=== PATIENT | female | born 1940 | race Caucasian/White ===

== ENCOUNTER → 2016-04-11 | Outpatient (CLI) | payer OTHER, BC ==
[~2016-04-11] VITALS: Ht 165.1 cm; Wt 47.2 kg
[~2016-04-11] MED LIST: ALEVE220 MG PO; AMBEREN PO; CELEBREX 200 M200 MG PO; ENDOCET 5-3251 EACH PO; FLAX OIL1000 MG PO; FLOVENT HFA 1110 MCG IH; OXYCODONE-ACET1 EACH PO; OXYCODONE-APAP1 EAC6 PO; OXYCONTIN10 M1 PO; PERCOCET 5-3251 EACH PO; RELAFEN500 MG PO; VITAMIN D1000 UNI1 PO; XOPENEX HF1 UDINHALE IH
--- NOTE | ~2016-04-11 | HPC ---
[facility] [address] [address] PAIN MANAGEMENT CONSULTATION Name: JORDEN GREGORIO Room #: REG SOFÍA Leonie.#: [id number] Admission: 04/11/16 Attend Phys: Ravi Palafox MD Discharge: Date of : 41 Report #: [id number] THIS REPORT FOR: //name// CC: Phill Palafox DATE OF REGISTRATION: 04/10/2016. 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 The patient is here today for a 3-month followup visit. She is here for medication management. SUBJECTIVE: She was last seen on 12/28/2015. She has been a longstanding patient of our clinic. We released her medications last week when she had to attend a . She is here today for her followup visit. She reports her pain remains well controlled with medication. It is not ideal, but she is grateful for it. We reviewed her medications today, side effects, which have been limited. She complains that during the cold winter months, her pain is worse. This is fairly typical for a number of our patients who have similar problems with chronic spondylitic changes of the spine. PHYSICAL EXAMINATION: GENERAL: She is a pleasant 75-year-old. VITAL SIGNS: Blood pressure 140/77, heart rate 80, BMI is 17. MUSCULOSKELETAL: Tenderness across the low back is noted. She has noted dextro-rotational scoliosis. IMPRESSION: 1. Chronic low back pain with radiculopathy, which is now on check. 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 2. Management of high risk medications. RECOMMENDATIONS: Today, I reviewed important issues related to the use of opioids and other potent, centrally-acting medications for the treatment of pain. Rationale for the use of medication is to reduce pain and improve daily activities and function. These activities, individualized for each patient, include simple activities of daily living, improvement in work capabilities, increased involvement in family and other social activities. Improvement in psychosocial elements of chronic pain were discussed in a broader conversation of wellness that included nonpharmacologic measures to manage pain, suffering and efforts to enhance well being. Remaining as physically active as possible for age and ability plays a tremendous role in the management of chronic pain. This was encouraged. We reviewed potential medication side effects, toxicities and drug interactions, employing strategies to manage problems identified. Pain medications have potential side effects, and patients should exercise caution when operating machinery or driving. We discussed in detail the dramatic increase in the Emergency Room visits, hospitalizations and deaths related to [facility] [address] [place] [address] PAIN MANAGEMENT CONSULTATION Name: JORDEN GREGORIO [facility] [place]#: [id number] Admission: 04/11/16 Attend Phys: Ravi Palafox MD Discharge: Date of : 41 Report #: [id number] misuse and diversion of prescription pain medications in [place]. This opioid crisis in [place] requires both physicians and patients alike to safely use all medications. Safeguarding of medications by keeping them safely locked up or out of reach of others is a critical patient responsibility to ensure that medications are not diverted to others. We discussed the Center for Disease Control (CDC) guidelines for safe use of opioids and the efforts to standardize opioid prescribing to prevent complications. These include guidelines which we strive to meet. They include the standardization of various opioids to morphine milligram equivalents (MME) and also stress the use of the lowest effective dose. Efforts to remain within daily maximum dosing guidelines will also be of focus of treatment. Addiction versus therapeutic use of medication includes routine followup, single prescriber, single pharmacy and the use of random drug screens and other tools to ensure safe prescribing. A signed agreement outlying these issues has been reviewed and remains on the patient chart. Prescriptions were provided today under terms of that agreement, and followup visit is planned in 3 months. <ELECTRONICALLY SIGNED> By: Ravi Palafox MD 05/05/16 1130 1500 00 Ravi Palafox MD /nt
[2016-04-11 14:05] VITALS: BP 140/77
== END | disposition home or self-care (01) ==
LOC: PAIN 04-05 08:01
DX: M54.16 Radiculopathy, lumbar region (principal); M41.9 Scoliosis, unspecified

== ENCOUNTER → 2016-06-18 | Outpatient (CLI) | payer OTHER, BC ==
[~2016-06-18] VITALS: Ht 165.1 cm; Wt 47.9 kg
[~2016-06-18] MED LIST changes: +GABAPENTIN100 MG PO
--- NOTE | ~2016-06-18 | HPC ---
[facility] [address] [address] [address] PAIN MANAGEMENT CONSULTATION Name: JORDEN GREGORIO Room #: REG SOFÍA Leonie.#: [id number] Admission: 06/18/16 Attend Phys: Ravi Palafox MD Discharge: Date of : 41 Report #: [id number] THIS REPORT FOR: //name// CC: Phill Palafox DATE OF SERVICE: 06/18/2016 DATE OF SERVICE: 06/18/2016 Followup visit for chronic back pain with radiculopathy, L5-S1. The patient returns to pain clinic today and her pain is quite a bit worse. Over the course of many years, she had epidural injections, but has not had one for over 15 months. She says the pain is so severe that she cannot really do many of the things that she enjoys including activities around the house, taking care of grandchildren. She had to a leave alliance party the other night because she could not stand for more than just a bit. Pain is in the back, but more so it radiates down through the legs bilaterally following an L5-S1 distribution. She has had scoliosis and degenerative disease affecting the lower lumbar segment. There is a transition of the lumbar anatomy with lumbarization of S1. She has marked facet arthrosis at L5-S1 and disk desiccation there. scoliosis is a left convexity. Medications have been used to help with pain, and I have agreed to provide this for her under terms of our opioid agreement. This was last signed in 2015, first signed in 2002. She has used medications cautiously and carefully under terms of our agreement and is at modest dose averaging oxycodone 7.5 tablets 4 times daily for a total of 30 mg of oxycodone a day equal to morphine milligrams equivalence to 45. PHYSICAL EXAMINATION: GENERAL: She is pleasant, alert and oriented. She is very slender and has always been. VITAL SIGNS: Her BMI is 17.6. This is her normal height and weight. Her blood pressure is 121/74, heart rate 86. MUSCULOSKELETAL: She has tenderness around her scoliotic lumbar spine and she has pain with walking. She has bilateral positive straight leg raising, reproduces pain down the L5-S1 distribution. Sensation is intact. No focal weakness is noted. IMPRESSION: 1. Low back pain with radiculopathy secondary to significant degenerative disease of the lumbar spine with rotational scoliosis, spondylosis and facet arthrosis. [address] [address] PAIN MANAGEMENT CONSULTATION Name: JORDEN GREGORIO [facility]: [id number] Admission: 06/18/16 Attend Phys: Ravi Palafox MD Discharge: Date of : 41 Report #: [id number] 2. Management of high risk medications under terms of an opioid agreement. PLAN: I have renewed her medications under agreement and she was then taken to the fluoroscopic suite for an epidural injection. She was placed prone, skin was prepped with ChloraPrep. Skin was anesthetized over the L5-S1 interspace. A 20-gauge Tuohy epidural needle advanced in the epidural space using loss of resistance. No blood or CSF aspirated. 1 mL of Omnipaque injected with good spread of dye observed in the epidural space, spreading nicely to the right. This was then followed by 3 mL of 1% lidocaine mixed with 80 mg of triamcinolone. She tolerated the procedure well and was taken to recovery room for observation. Followup visit planned in 3 months. We did started new medication today, gabapentin 100 mg taken at bedtime, may be also taken 3 times a day for neuropathic pain. She start this if she does not get satisfactory relief from her epidural injection. By: 1527 [id number] Ravi Palafox MD /nt
[2016-06-18 14:18] VITALS: BP 121/74
== END ==
LOC: PAIN 07:15
DX: M47.816 Spondylosis without myelopathy or radiculopathy, lumbar region (principal); M54.17 Radiculopathy, lumbosacral region; F17.210 Nicotine dependence, cigarettes, uncomplicated

== ENCOUNTER → 2016-09-20 | Outpatient (CLI) | payer OTHER, BC ==
[~2016-09-20] VITALS: Ht 165.1 cm; Wt 45.8 kg
[~2016-09-20] MED LIST changes: +VOLTAREN GEL 1100 G2 TOP
[2016-09-20 11:16] VITALS: BP 157/80
== END | disposition home or self-care (01) ==
LOC: PAIN 06:41
DX: M54.16 Radiculopathy, lumbar region (principal); G89.29 Other chronic pain; M25.571 Pain in right ankle and joints of right foot; C44.319 Basal cell carcinoma of skin of other parts of face; M76.61 Achilles tendinitis, right leg; F17.210 Nicotine dependence, cigarettes, uncomplicated; F11.20 Opioid dependence, uncomplicated; Z98.890 Other specified postprocedural states

== ENCOUNTER → 2016-12-17 | Outpatient (CLI) | payer OTHER, BC ==
[~2016-12-17] VITALS: Ht 165.1 cm; Wt 45.5 kg
--- NOTE | ~2016-12-17 | HPC ---
[facility] [place] [address] PAIN MANAGEMENT CONSULTATION Name: JORDEN GREGORIO Room #: REG SOFÍA Leonie.#: [id number] Admission: 12/17/16 Attend Phys: Ravi Palafox MD Discharge: Date of : 41 Report #: [id number] THIS REPORT FOR: //name// CC: Phill Palafox DATE OF SERVICE: 12/17/2016 Followup visit for lumbar radiculopathy. The patient returns to pain clinic today for renewal of pain medication. She uses oxycodone 7.5/325 four times daily on a schedule. She has done pretty well with the medication. She previously was receiving some benefit from an epidural injection, but I gave her an injection last year, which hurt during the performance of the shot, she does not want an injection since. She scores her daily pain is a 5/10. It is worse with standing, bending. It is worse in the evening and with weather changes. She gets relief from her medication, relaxation, heat. CURRENT MEDICATIONS: Gabapentin 100 mg once daily, oxycodone 7.5 four times daily, diclofenac gel topical and cholecalciferol. Recent history is significant for Mohs procedure. She is healing nicely from that, although she thinks that the scars are quite evident I did not even notice them and tell or point it out. She has a lot of sun exposure and multiple basal cells that will need to be treated over the years. She also has a new plantar fasciitis in the right foot, which is locally tender and quite painful and severe. PHYSICAL EXAMINATION: She is pleasant with no significant changes in her affect. No depression or anxiety. Blood pressure 146/68, heart rate is 76, BMI is 16.7. She has low back tenderness and discomfort with flexion, extension and rotation. She has straight leg raising discomfort that is bilateral into the hips all the way to the feet. Her gait is strong, she is not a fall risk. She has tenderness over the right heel consistent with plantar fasciitis. IMPRESSION: 1. Chronic back pain with radiculopathy. 2. Plantar fasciitis. 3. Management of high risk medications under terms of an opioid agreement. PLAN: I renewed her medications under terms of our agreement with the importance of safeguarding all medications discussed. She will continue to safeguard her medications. We will continue to provide medicines for [place] [address] PAIN MANAGEMENT CONSULTATION Name: JORDEN GREGORIO Room #: REG SOFÍA Gibson#: [id number] Admission: 12/17/16 Attend Phys: Ravi Palafox MD Discharge: Date of : 41 Report #: [id number] Followup visit is planned in the pain clinic in 3 months. By: [id number] Ravi Palafox MD /nt
[2016-12-17 13:18] VITALS: BP 146/68
== END | disposition home or self-care (01) ==
LOC: PAIN 07:39
DX: Z76.0 Encounter for issue of repeat prescription (principal); G89.29 Other chronic pain; M54.16 Radiculopathy, lumbar region; M72.2 Plantar fascial fibromatosis; F17.200 Nicotine dependence, unspecified, uncomplicated; Z98.890 Other specified postprocedural states; Z79.891 Long term (current) use of opiate analgesic

== ENCOUNTER → 2017-01-02 | Outpatient (CLI) | payer OTHER, BC ==
[~2017-01-02] VITALS: Ht 165.1 cm; Wt 48.1 kg
--- NOTE | ~2017-01-02 | HPC ---
[facility] [address] [address] PAIN MANAGEMENT CONSULTATION Name: JORDEN GREGORIO Room #: REG SOFÍA [place].#: [id number] Admission: 01/02/17 Attend Phys: Ravi Palafox MD Discharge: Date of : 41 Report #: [id number] THIS REPORT FOR: //name// CC: Phill Palafox DATE OF SERVICE: 01/02/2017 CHIEF COMPLAINT: Low back pain with radiation to the right hip, following an L5 distribution into the calf and foot. The patient is here today with severe sciatic pain. The pain is 10/10. It occurred after she did some exercises, some lifting and bending. The pain now is to the point where she can hardly stand or bend. It is worse in the evening and weather has also made it worse. She has tried medication, relaxation, heat and rest, but the pain is so severe that she would like to go forward today with an epidural. I provided these treatments for her in the past with good response. MEDICATIONS: Reviewed and reconciled. She is on oxycodone, naproxen, cholecalciferol and Xopenex. ALLERGIES: SHRIMP. I have given her small amounts of Omnipaque in the past without reaction. PHYSICAL EXAMINATION: She is very slender with a BMI of 17.6. Blood pressure of 176/84, heart rate 80, respirations 18. She moves from a sitting to standing position, ambulates with pain. She has trouble with forward bending and extension of the spine. Localized tenderness is noted of the lumbosacral segment, where she has a rotational scoliosis and tenderness. Straight leg raising in sitting position is positive on the right, following an L5 distribution as far as the foot. Sensation is slightly diminished. Deep tendon reflexes are diminished at the knee and ankle. IMPRESSION: Severe lumbar spondylosis with rotational scoliosis. Lumbar radiculopathy, right L5 distribution. RECOMMENDATIONS: L5-S1 epidural steroid injection under fluoroscopic guidance. PROCEDURE: She was taken to fluoroscopic suite, placed prone, skin prepped with ChloraPrep. Skin anesthetized over the L5-S1 to the right of midline. A 20-gauge Tuohy epidural needle at first attempt in the epidural space using loss of resistance. A 0.25 mL of Omnipaque was injected to demonstrate right lateral spread into the recess. It was then followed by 3 mL of 0.5% lidocaine mixed with 80 mg of triamcinolone as tolerated. She tolerated the procedure well and was observed for 45 minutes and discharged. [address] [address] PAIN MANAGEMENT CONSULTATION Name: JORDEN RGEGORIO Room #: REG [facility]#: [id number] Admission: 01/02/17 Attend Phys: Ravi Palafox MD Discharge: Date of : 41 Report #: [id number] Followup visit is planned in the pain clinic on an as needed basis. The patient will be followed closely for medication management of intractable pain and she has an appointment that is coming in, in about another 2 months. By: [id number] Ravi Palafox MD /nt
[2017-01-02 14:01] VITALS: BP 176/84
== END | disposition home or self-care (01) ==
LOC: PAIN 08:43
DX: M47.896 Other spondylosis, lumbar region (principal); M41.86 Other forms of scoliosis, lumbar region; G89.29 Other chronic pain; F17.200 Nicotine dependence, unspecified, uncomplicated; Z79.891 Long term (current) use of opiate analgesic

== ENCOUNTER → 2017-03-13 | Outpatient (CLI) | payer OTHER, BC ==
[~2017-03-13] VITALS: Ht 165.1 cm; Wt 44.6 kg
[~2017-03-13] MED LIST changes: +OXYCODON-ACETA1 EAC1 PO
--- NOTE | ~2017-03-13 | HPC ---
[facility] [place] [address] [address] [place] [address] PAIN MANAGEMENT CONSULTATION Name: JORDEN GREGORIO Room #: REG [facility] M..#: [id number] Admission: 03/13/17 Attend Phys: Lorna Burns MD Discharge: Date of : 41 Report #: [id number] THIS REPORT FOR: //name// CC: Lorna Calvillo MD DATE OF SERVICE: 03/13/2017 FOLLOWUP COMPLAINT: Here for medication evaluation. FOLLOWUP HISTORY: The patient is a 76-year-old female who has been followed in the pain clinic by Dr. Ravi Palafox. She has pain and discomfort, which radiates down into her back, hip and involving her right leg. She rates her pain as 4/10 at this juncture. She continues to note that pain is problematic and can be worse in the evenings as well as when the weather changes. She has soreness and a burning pressure sensation in this area. She has been treated with oxycodone, which she finds efficacious. ALLERGIES: SHRIMP AND AVOCADOS. MEDICATIONS: Oxycodone 7.5 mg 1 p.o. q. 6 hours p.r.n. as needed, Voltaren gel 1% applied four times topically, Naprosyn 220 mg tablets one orally as needed, vitamin D. PHYSICAL EXAMINATION: Blood pressure is 133/78, pulse 78, respiratory rate 14, room air saturation 97%. Height 5 feet 5 inches, weight 98 pounds, BMI is 16. The patient complains of pain and discomfort, which can be most problematic when standing, bending, twisting and with certain activities. She is a very thin lady. Notes some increased lumbosacral discomfort with rotation and with movement of her lower extremities. Straight leg raise is positive. IMPRESSION: Lumbar radiculopathy with spondylosis and rotational scoliosis, involves the L5-S1 dermatomal distribution. RECOMMENDATIONS: At this juncture, we will continue with her opioid medications. We discussed the use of opioid medications and their efficacy. We explained that opioid medications can be efficacious, but sometimes can cause problems with tolerance as well as addiction. The patient states that she has been taking her medication for quite a number of years. This is helpful and she feels that they are truly beneficial. She has taken her medications as prescribed per her report. She will [place] [address] PAIN MANAGEMENT CONSULTATION Name: JORDEN GREGORIO Room #: REG SOFÍA Gibson#: [id number] Admission: 03/13/17 Attend Phys: Lorna Burns MD Discharge: Date of : 41 Report #: [id number] Javy. We would like to thank you for letting us participate in her care. We hope she continues to improve. By: 0926 [id number] Lorna Burns MD /PMT
[2017-03-13 09:06] VITALS: BP 133/78
== END ==
LOC: PAIN 06:51
DX: M47.26 Other spondylosis with radiculopathy, lumbar region (principal); M41.86 Other forms of scoliosis, lumbar region

== ENCOUNTER → 2017-05-30 | Outpatient (CLI) | payer OTHER, BC ==
[~2017-05-30] VITALS: Ht 165.1 cm; Wt 44.9 kg
[~2017-05-30] MED LIST changes: +CEFUROXIME250 MG PO
--- NOTE | ~2017-05-30 | HPC ---
[facility] [place] [address] [address] [place] [address] PAIN MANAGEMENT CONSULTATION Name: JORDEN GREGORIO Room #: REG SOFÍA M.R.#: [id number] Admission: 05/30/17 Attend Phys: Ravi Palafox MD Discharge: Date of : 41 Report #: [id number] THIS REPORT FOR: //name// CC: Phill Palafox DATE OF SERVICE: 05/30/2017 Followup visit for management of chronic low back pain. The patient is here today for a 3-month followup interval. She was last seen by my partner on 03/13/2017. Her interval history has been good. She shows ongoing pain at about 4, which is very manageable for her. She remains active in her house in her daily activities. She has been able to manage her pain with medication provided through the clinic and she remains on oxycodone, although we have carefully tried to limit this to the lowest effective dose over the years. She is currently now on oxycodone 7.5/325 for a total of 30 mg per day, taken on schedule. This equates to a morphine milligram equivalent of 45. She has an opioid agreement and understands well the requirements of her within the agreement to safeguard her medications. All medications were reviewed and reconciled. PQRS review is positive for history of osteoarthritis involving the lower extremities, hips and knees. She has not had operation. She has always been very slender with a BMI of 16.5. as she is aging, I have discussed with her the importance of monitoring for osteoporosis since she is at risk for fracture. She has not fallen nor is she a fall risk at this time. PHYSICAL EXAMINATION: VITAL SIGNS: Blood pressure is 127/81, heart rate 84, respirations 16, oxygen saturation 98%. She is not on a blood thinner nor is she under treatment for hypertension. Her initial opioid agreement was signed over 10 years ago. She has reports-signed an agreement here within the last couple of years in order to review the important aspects of the agreement, that was dated 12/28/2015. We talked today about the CDC guidelines, the opioid crisis in [place] and the use of medication for pain versus addiction. IMPRESSION: 1. Chronic intractable back pain with radiculopathy. 2. Lumbar spondylosis and rotational scoliosis. 3. Management of opioid medication under terms of written opioid agreement. [address] [address] PAIN MANAGEMENT CONSULTATION Name: JORDEN GREGORIO Room #: REG SOFÍA Paige#: [id number] Admission: 05/30/17 Attend Phys: Ravi Palafox MD Discharge: Date of : 41 Report #: [id number] Followup visit planned in the pain clinic in 3 months. <ELECTRONICALLY SIGNED> By: Ravi Palafox MD 07/01/17 1408 1441 22 Ravi Palafox MD /nt
[2017-05-30 12:44] VITALS: BP 127/81
== END ==
LOC: PAIN 06:51
DX: M47.26 Other spondylosis with radiculopathy, lumbar region (principal); G89.4 Chronic pain syndrome; F11.20 Opioid dependence, uncomplicated

== ENCOUNTER → 2017-08-22 | Outpatient (CLI) | payer OTHER, BC ==
[~2017-08-22] VITALS: Ht 160 cm; Wt 46.7 kg
--- NOTE | ~2017-08-22 | HPC ---
[facility] [address] [place] [address] PAIN MANAGEMENT CONSULTATION Name: JORDEN GREGORIO Room #: REG SOFÍA M..#: [id number] Admission: 08/22/17 Attend Phys: Ravi Palafox MD Discharge: Date of : 41 Report #: [id number] THIS REPORT FOR: //name// CC: Phill Palafox DATE OF SERVICE: 08/22/2017 Followup visit for chronic low back pain. The patient returns to pain clinic today and is in quite a bit of pain and is also under a great deal of stress. Her daughter and son-in-law were involved in a motor vehicle accident while on a trip in [facility]. She was caring for the 3 grandchildren at the time and has now had to take more of that responsibility. This has increased her pain and has taken away much of her free time. She complains that her pain is particularly severe with standing and weightbearing. She is grateful for the relief that she receives from medication. PQRS review shows history of osteoarthritis of the low back, left and right hip, and knee. Her body habitus has always been below 20 BMI and remains at 18.3. She is not a fall risk. She is on an opioid agreement, which was signed in 2015. We reviewed the agreement as well as the CDC guidelines. We talked about her morphine milligram equivalency. She is on 4 hydrocodone 10/325 tablets per day and we discussed increasing this with her recent increase in pain to 5 tablets. PHYSICAL EXAMINATION: Continues to show that her pain is mostly across her low back. She has pain with forward flexion and extension. She has radiating pain bilaterally into lower extremities that is consistent with radiculopathy. IMPRESSION: 1. Low back pain with spondylosis and radiculopathy. 2. Management of high risk medications under terms of written opioid agreement. I reviewed her contractual relationship with our medications. She is grateful for the analgesia and improvement in day-to-day activities that she receives from the medication. Side effects are well managed. She safeguards her medications carefully. I will see her back in the pain clinic in 3 months. By: [id number] Ravi Palafox MD /nt
[2017-08-22 10:42] VITALS: BP 144/69
== END ==
LOC: PAIN 07:02
DX: M47.27 Other spondylosis with radiculopathy, lumbosacral region (principal); F11.90 Opioid use, unspecified, uncomplicated

== ENCOUNTER → 2017-11-07 | Outpatient (CLI) | payer OTHER, BC ==
[~2017-11-07] VITALS: Ht 160 cm; Wt 46.4 kg
--- NOTE | ~2017-11-07 | HPC ---
[facility] [address] [address] PAIN MANAGEMENT CONSULTATION Name: JORDEN GREGORIO Room #: REG SOFÍA Paige#: [id number] Admission: 11/07/17 Attend Phys: Ravi Palafox MD Discharge: Date of : 42 Report #: [id number] THIS REPORT FOR: //name// CC: Phill Palafox DATE OF SERVICE: 11/07/2017 A 25-minute followup visit for chronic low back pain with radiculopathy. The patient returns to the pain clinic today and spent a great deal of time going over her ongoing pain. She had been taking care of her daughter who was involved in an accident while on vacation and her who has recently been diagnosed with DVT. She is a chronic pain patient with a backache and radiation into the left leg in a radicular distribution. She has responded well in the past to epidural injections. She has been reluctant to have an epidural recently, but is considering it now because the pain has become more severe with her recent increase in activities. I provided her medications under terms of written opioid agreement. She is on oxycodone 7.5/325 one tablet every 4 to 6 hours, I give her 150 tablets per month. We reviewed again the possibility of transitioning this to a long-acting opioid. There are some cost barriers although she can afford the higher cost medication. She is reasonably satisfied with this medication. It improves her day-to-day function and she knows that it is critical that she safeguards these multiple pills provided through our agreement. Her MME calculates to 67.5. I would like to reduce that in the future if we can with the benefit of an epidural steroid injection. PHYSICAL EXAMINATION: GENERAL: She is pleasant, alert and loquacious. She stands throughout her visit as it difficult for her to sit. HEENT: Pupils are equal, round and react to light. EOMs are intact. Mucous membranes are moist. NECK: Supple. CHEST: Clear. CARDIAC: Rhythm is regular. BACK: Spine is mildly tender with some slight scoliosis. She has pain with all range of motion of the spine, forward flexion, extension and rotation. Straight leg raising reproduces pain primarily into the left today in a radicular pattern that follows L5-S1. PQRS also shows that she is every day smoker, continues 1/2 pack per day. She no longer drinks alcohol. She is on an opioid agreement. She is on no blood thinning medications and has no history of hypertension. She is not a fall [facility] [address] [place] [address] PAIN MANAGEMENT CONSULTATION Name: JORDEN GREGORIO Room #: REG [facility]#: [id number] Admission: 11/07/17 Attend Phys: Ravi Palafox MD Discharge: Date of : 41 Report #: [id number] risk. Her BMI is 18.1, but this is normal for her. Blood pressure was 162/67, heart rate 83 and respirations 16. IMPRESSION: 1. Chronic low back pain with radiculopathy and spondylosis. 2. Management of high risk medications under terms of an opioid agreement. RECOMMENDATION: I have ordered oxycodone 7.5/325 150 tablets per month with release dates in 4 and 8 weeks. I would like to see her back in the pain clinic for an epidural injection if the pain worsens and again one of our goals would be to try and reduce her reliance on her higher dose opioid medications. By: [id number] Ravi Palafox MD /nt
[2017-11-07 12:30] VITALS: BP 162/67
== END ==
LOC: PAIN 09:27
DX: M47.26 Other spondylosis with radiculopathy, lumbar region (principal); G89.29 Other chronic pain; Z79.899 Other long term (current) drug therapy

== ENCOUNTER → 2018-02-06 | Outpatient (CLI) | payer OTHER, BC ==
[~2018-02-06] VITALS: Ht 160 cm; Wt 48.6 kg
--- NOTE | ~2018-02-06 | HPC ---
[facility] [address] [address] PAIN MANAGEMENT CONSULTATION Name: JORDEN GREGORIO Room #: REG SOFÍA Leonie.#: [id number] Admission: 02/06/18 Attend Phys: Ravi Palafox MD Discharge: Date of : 41 Report #: [id number] THIS REPORT FOR: //name// CC: Phill Palafox DATE OF SERVICE: 02/06/2018 The patient returns to the pain clinic today complaining of both low back pain and bilateral lumbar radiculopathy. Pain begins in her low back and radiates down the posterior aspect of her leg in an L5-S1 distribution. She has notable degeneration of the L5-S1 segment and has had epidural injections with good results in the past. A couple of her injections have been painful and has been a little while since she has had an injection. She remains very active. She helped take care of her daughter when her daughter had an injury and she goes to [place] and enjoys time with friends there. She likes to garden during the summer. She does lots of volunteer activities for her neighborhood. She walks her dog on a daily basis. She is far from idle and the medication that she has provides her with enough improvement in her pain that she is able to be active. I have stressed the importance of remaining active as the most important thing that she does. She denies any side effects from her medications. She has a 13-year-old grandson and I have talked to her at length about the importance of safeguarding her medications and keeping them locked up and away from him. We have checked all of her medication use on the prescription drug monitoring program and there are no suspect events. She denies side effects. Because there are some arthritic components, we discussed today the possibility of adding a nonsteroidal anti-inflammatory drug other than an occasional Aleve, which seems to provide relief. Meloxicam 7.5 mg 1-2 tablets will be offered as well. PHYSICAL EXAMINATION: She is generally in the standing position, it is her most comfortable. She has a BMI of around 20. She moves from sitting to standing position independently. She has no weakness in her legs. She has tenderness across her lumbosacral segment where there is a curvature noted in the lower lumbar region. She has pain with forward flexion, extension and positive straight leg raising bilaterally, worse on the left. Sensation is intact. IMPRESSION: Chronic low back pain with radiculopathy. PROCEDURE: Lumbar epidural steroid injection L4-L5 under fluoroscopic guidance. She was taken to the fluoroscopic suite, placed prone, [place] [address] PAIN MANAGEMENT CONSULTATION Name: JORDEN GREGORIO Room #: REG [facility] MaddyAngelo#: [id number] Admission: 02/06/18 Attend Phys: Ravi Palafox MD Discharge: Date of : 41 Report #: [id number] ChloraPrep. Skin anesthetized over L4-L5. A 20-gauge Tuohy epidural needle was advanced in the epidural space using loss of resistance technique. There was no blood or CSF aspirated. 1 mL of Omnipaque injected. Good spread of dye observed into the epidural space followed by 3 mL of 0.5% lidocaine mixed with 80 mg of triamcinolone. She tolerated the procedure well and was observed for 45 minutes and discharged. Followup visit planned as needed. By: [id number] Ravi Palafox MD /nt
[2018-02-06 13:26] VITALS: BP 145/67
== END | disposition home or self-care (01) ==
LOC: PAIN 06:44
DX: M54.16 Radiculopathy, lumbar region (principal); G89.29 Other chronic pain; F17.210 Nicotine dependence, cigarettes, uncomplicated; Z79.899 Other long term (current) drug therapy; Z79.891 Long term (current) use of opiate analgesic

== ENCOUNTER → 2018-05-05 | Outpatient (CLI) | payer OTHER, BC ==
[~2018-05-05] VITALS: Ht 160 cm; Wt 50.3 kg
[~2018-05-05] MED LIST changes: +OXYCODONE-APAP1 EAC4 PO
--- NOTE | ~2018-05-05 | HPC ---
[facility] [place] [address] [place] [address] PAIN MANAGEMENT CONSULTATION Name: JORDEN GREGORIO Room #: REG SOFÍA Leonie.#: [id number] Admission: 05/05/18 Attend Phys: Ravi Palafox MD Discharge: Date of : 41 Report #: [id number] THIS REPORT FOR: //name// CC: Phill Palafox DATE OF SERVICE: 05/05/2018 Followup visit for lumbar radiculopathy. The patient returns to the pain clinic today for an epidural injection. She had a good month of relief after her last injection at L4-L5. She does have some steroid effects and for the first week or so she has hyperactivity and some insomnia. She has been on an opioid agreement. She would like to take 5 tablets a day rather than 4. She is on Percocet 7.5. I reduced her to oxycodone 5/325, 5 tablets, which she can take throughout the day one every 4 hours. This actually will reduce her daily opioid use. Her current MME is 45 with the new medication her MME will be at 37. I would prefer not to use a long-acting opioid for her since her pain varies. She is highly active. She is upset about the fact that she will have to take care of her grandchildren when her daughter goes to the [facility]. This is a very fortunate family that has many advantages. The stress; however, is no different from others. She feels a lot of challenges when she is required to take on some of these physically challenging chores. Her PQRS review today shows that she has a history of osteoarthritis involving bilateral hips and knees. She is not a fall risk and has not fallen in the last 3 months. She is on no blood thinners and is not treated for hypertension. She is on an opioid agreement with a functional assessment score of 12/70, which is excellent. Her risk assessment tool puts her at a low risk with a score of 1. She denies use of tobacco and alcohol. PHYSICAL EXAMINATION: Her weight is slightly up to a BMI of 19.6. Her blood pressure 171/87, heart rate is 81 and respirations 14. She moves independently from sitting to standing position. She has good strength bilaterally in the lower extremities. She denies any numbness. She has a scoliotic rotational curve noted in the lumbar spine. There is tenderness across the lumbosacral segment and pain with forward flexion and extension. The longer she stands the more she complains of pain radiating into her legs with a radicular component as far as the calves. IMPRESSION: Chronic low back pain with radiculopathy, bilateral. Rotational [facility] [address] [place] [address] PAIN MANAGEMENT CONSULTATION Name: JORDEN GREGORIO Room #: REG SOFÍA Gibson#: [id number] Admission: 05/05/18 Attend Phys: Ravi Palafox MD Discharge: Date of : 41 Report #: [id number] scoliosis and spondylosis. PROCEDURE: L4-L5 epidural injection under fluoroscopic guidance. PROCEDURE IN DETAIL: She was taken to the fluoroscopic suite for the procedure, placed prone and skin prepped with ChloraPrep. Skin anesthetized over the L4-L5 interspace. A 20-gauge Tuohy epidural needle advanced first attempt in the epidural space with loss of resistance technique. There was no blood or CSF aspirated. 1 mL of Omnipaque injected. Good spread of dye observed into the epidural space followed by 3 mL of 0.5% lidocaine mixed with 80 mg of triamcinolone. She tolerated the procedure well and was observed for 45 minutes and discharged. Follow up as needed. By: [id number] Ravi Palafox MD /nt
[2018-05-05 13:59] VITALS: BP 171/87
--- NOTE | 2018-05-05 14:17 | NUR ---
Pain Clinic Assessment: 1. History of Osteoarthritis: Left Lower Extremity Right Lower Extremity History of Rheumatoid Arthritis: Not Applicable 2. Height: 5 ft. 3 in. 160.0 cm. Weight: 110.8 lb. oz. 50.258 kg. Patient's BMI: 19.6 3. Vital Signs: BP: 171/87 Pulse: 81 Resp: 14 Temp: 02 Sat: 100 ECG Mon: 4. Pain Intensity: 6-7 5. Fall Risk: Dizziness: Needs help standing or walking: Fallen in the last 3 months: Fall risk comments: 6. Patient on Blood Thinner: None 7. History of Hypertension: N 8. Opioid Therapy greater than 6 weeks: Y Opiate Contract Signed: 12/28/15 9. Risk Assessment Tool Provided: LOW RISK 03/27 10. Functional Assessment Tool: 11. Recreational Drug Use: Never Drug Type: Tobacco Use: Current Every Day Smoker Tobacco Type: Amount or Packs/day: How Many Years: Alcohol Use: No Frequency: Quant:
== END | disposition home or self-care (01) ==
LOC: PAIN 07:17
DX: M47.26 Other spondylosis with radiculopathy, lumbar region (principal); G89.29 Other chronic pain; M41.86 Other forms of scoliosis, lumbar region; M19.90 Unspecified osteoarthritis, unspecified site; I10 Essential (primary) hypertension; F17.210 Nicotine dependence, cigarettes, uncomplicated; Z79.899 Other long term (current) drug therapy; Z88.8 Allergy status to other drugs, medicaments and biological substances

== ENCOUNTER → 2018-08-04 | Outpatient (CLI) | payer OTHER, BC ==
[~2018-08-04] VITALS: Ht 160 cm; Wt 48.2 kg
--- NOTE | ~2018-08-04 | HPC ---
[facility] [place] [address] PAIN MANAGEMENT CONSULTATION Name: JORDEN GREGORIO Room #: REG SOFÍA Leonie.#: [id number] Admission: 08/04/18 ������������������ Attend Phys: Ravi Palafox MD Discharge: ������������������ Date of : 41 Report #: [id number] THIS REPORT FOR: //name// CC: Phill Palafox DATE OF SERVICE: 08/04/2018 Followup visit for severe scoliosis of the lumbar spine with radiculopathy. The patient returns to pain clinic today for an epidural injection. She has responded favorably to these over the years. She is very adamantly against surgery. We also manage her pain with medication. I allow her 4-5 oxycodone 7.5/325 tablets per day under terms of written opioid agreement. She does get relief. She is grateful for the relief and allows her to be more active with her family. She has grandchildren. She attends soccer games and hopes to visit friends this summer. We discussed other options for treatment including spinal cord stimulation and surgery neither of which sounds appealing to her. We reviewed her previous injections and we will try to focus medication more to the left today. She is having more significant pain with lumbar radiculopathy that follows an L4-L5 distribution. Medications were reviewed and reconciled today under terms of our written agreement. She is carefully safeguarding her medication. She has completed an opioid risk assessment tool and scored 0. Her weight is stable with 18.8 BMI. Her pain intensity is 9/10. She is not a fall risk nor has she fallen in the last 3 months. She takes no blood thinning medications nor is she hypertensive. She denies use of tobacco and alcohol. PHYSICAL EXAMINATION: GENERAL: She is a laci 78-year-old female. She is 5 feet 3 inches, 106 pounds, BMI 18.8. Blood pressure 156/85, heart rate 80, respirations 14. She has difficulty with sitting for a prolonged period of time and paces the room as I discussed her treatment. CHEST: Clear. CARDIAC: Rhythm is regular. ABDOMEN: Soft. BACK: Demonstrates scoliosis of the lumbar spine with tenderness across the lumbosacral segment. Straight leg raising is particularly positive on the right today following an L4-L5 distribution. IMPRESSION: 1. Lumbar radiculopathy, chronic secondary to scoliosis and spondylosis, L4-L5, [facility] [address] [place] [address] PAIN MANAGEMENT CONSULTATION Name: JORDEN GREGOIRO Room #: REG SOFÍA Paige#: [id number] Admission: 08/04/18 ������������������ Attend Phys: Ravi Palafox MD Discharge: ������������������ Date of : 41 Report #: [id number] right radiculopathy is predominant today. 2. Management of high risk medication. PLAN: 1. We discussed continuing her on medication with important safe safeguarding until we find suitable other options for management. We will continue to provide with the medication that she feels is so beneficial. 2. Epidural steroid injection under fluoroscopic guidance, L4-L5, left paramedian. PROCEDURE: She was taken to fluoroscopic suite, placed prone, skin prepped with ChloraPrep. Skin anesthetized over the L4-L5 interspace the left of midline. A 20-gauge Tuohy epidural needle advanced in first attempt in the epidural space with loss of resistance. There was no blood or CSF aspirated. 1 mL of Omnipaque injected. Good spread of dye observed in the epidural space followed by 3 mL of 0.5% lidocaine mixed with 80 mg of triamcinolone. She tolerated the procedure well and was observed for 45 minutes and discharged. Follow up as needed. Prescriptions were provided for oxycodone 7.5/325 #150 tablets per month. ��������������������������������������������� ���������������������������������������� By: ��������������������������������������������� [id number] Ravi Palafox MD /nt
[2018-08-04 11:27] VITALS: BP 156/85
--- NOTE | 2018-08-04 11:36 | NUR ---
Pain Clinic Assessment: 1. History of Osteoarthritis: Left Lower Extremity Right Lower Extremity History of Rheumatoid Arthritis: Not Applicable 2. Height: 5 ft. 3 in. 160.0 cm. Weight: 106.2 lb. oz. 48.172 kg. Patient's BMI: 18.8 3. Vital Signs: BP: 156/85 Pulse: 80 Resp: 14 Temp: 02 Sat: 98 ECG Mon: 4. Pain Intensity: 9 5. Fall Risk: Dizziness: N Needs help standing or walking: N Fallen in the last 3 months: N Fall risk comments: 6. Patient on Blood Thinner: None 7. History of Hypertension: N 8. Opioid Therapy greater than 6 weeks: Y Opiate Contract Signed: 12/28/15 9. Risk Assessment Tool Provided: LOW RISK 03/27 10. Functional Assessment Tool: 11. Recreational Drug Use: Never Drug Type: Tobacco Use: Current Every Day Smoker Tobacco Type: Amount or Packs/day: How Many Years: Alcohol Use: No Frequency: Quant:
== END | disposition home or self-care (01) ==
LOC: PAIN 06:43
DX: M47.26 Other spondylosis with radiculopathy, lumbar region (principal); M41.9 Scoliosis, unspecified; F17.200 Nicotine dependence, unspecified, uncomplicated; Z88.8 Allergy status to other drugs, medicaments and biological substances; Z79.899 Other long term (current) drug therapy; Z98.890 Other specified postprocedural states

== ENCOUNTER → 2018-10-20 | Outpatient (CLI) | payer OTHER, BC ==
[~2018-10-20] VITALS: Ht 160 cm; Wt 46.0 kg
[~2018-10-20] MED LIST changes: +MELATONIN3 MG PO; +VALIUM5 MG PO
--- NOTE | ~2018-10-20 | HPC ---
[facility] [address] [place] [address] PAIN MANAGEMENT CONSULTATION Name: JORDEN GREGORIO Room #: REG SOFÍA Leonie.#: [id number] Admission: 10/20/18 ������������������ Attend Phys: Ravi Palafox MD Discharge: ������������������ Date of : 41 Report #: [id number] THIS REPORT FOR: //name// CC: Phill Palafox DATE OF SERVICE: 10/20/2018 Followup visit for chronic low back pain with radiation into both legs. The patient is here today with her , Eliezer. Her last 2 injections have not provided relief. She complains of pain as a 10/10. It is worse with sitting and standing. She is a little bit better when she is moving and walking and she is able to find a comfortable position at night. She gets relief from her pain medication. She denies side effects. She reports that without pain medication, she would not be able to function doing simple day-to-day activities including cooking standing in the kitchen and some cleaning. When the pain is severe, she lies down. She also uses heat. She remains very active and her says that she is constantly on the go. PQRS REVIEW: 1. She has a longstanding history of osteoarthritis involving the left hip and right hip. 2. She is 5 feet 3 inches, 101 pounds, BMI is 18.0. She has been this size since I have known her, this is normal for her. 3. Blood pressure 143/88, heart rate 99, respirations 14. 4. Reported pain intensity is 10/10. 5. She has not fallen nor is she a fall risk at this time. 6. She takes no blood thinning medications. 7. No treatment for hypertension at this time. All medications were reviewed and reconciled from the electronic medical record where they are noted on this record. 8. She is on an opioid agreement signed first over 5 years ago and reinitiated and signed on 12/28/2015. 9. She has completed an opioid risk assessment tool and her score is 1, considered low risk. 10. Functional assessment tool is actually suggesting that despite her high numbers, she remains very active and does not let the pain interfere with her day-to-day activities. 11. She continues to smoke and has been counseled. We discussed that again it contributes to her back pain. She denies use of alcohol. PHYSICAL EXAMINATION: VITAL SIGNS: Vital signs and weight as noted above. She moves independently from sitting to standing position. Her gait is stable. She does not appear to be a fall risk. She has mild antalg[place] [address] PAIN MANAGEMENT CONSULTATION Name: JORDEN GREGORIO Room #: REG [facility].#: [id number] Admission: 10/20/18 ������������������ Attend Phys: Ravi Palafox MD Discharge: ������������������ Date of : 42 Report #: [id number] good range of motion of the lumbar spine. CHEST: Clear. CARDIAC: Rhythm is regular. MUSCULOSKELETAL: Examination of the spine reveals tenderness across the lumbosacral segment. She has a thoracolumbar scoliosis. There is slight rotation with this. There is tenderness across the sacroiliac joints and into the hips. There is tenderness radiating down into the lateral aspect of both legs. Straight leg raising reproduces pain bilaterally. Deep tendon reflexes are absent. Sensation is intact to light touch, although she is a bit hypersensitive and perhaps even hyperalgesic in the calves and legs. No focal weakness is noted in any muscle groups. Plain film x-rays have been taken and the most recent spot films from her epidural showed that she has progression over the last 3-4 years of her scoliosis and degeneration most notably seen at L4-L5 and L5-S1. IMPRESSION: 1. Chronic intractable low back pain with radiculopathy, bilateral with scoliosis. 2. Management of high risk medications under terms of written opioid agreement. PLAN: 1. I have renewed her medications for her under terms of our agreement. She is provided with roughly 40 mg of oxycodone per day for an MME of 60. I provided all those medications for her and we reviewed the terms of our agreement. She will carefully safeguard her medication. Both she and her agree that she has no significant notable side effects. She is grateful for the relief and the improvement in day-to-day activities that she is provided by the medications. We discussed extensively her role in using these medications responsibly. 2. She does not want any advanced x-rays, exclamation point. There was into undergoing an MRI, so that we can understand better what is going on. I think we can treat her more effectively if we have an idea of her underlying cause of radiculopathy. I have also ordered plain film x-rays, which we will do prior to ordering the MRI. 3. No injection performed today, but medications were renewed under terms of written agreement. Followup visit planned after we have the results of the MRI. ��������������������������������������������� ���������������������������������������� By: ��������������������������������������������� [id number] [id number] Ravi Palafox MD /nt
[2018-10-20 10:36] VITALS: BP 143/88
--- NOTE | 2018-10-20 10:48 | NUR ---
Pain Clinic Assessment: 1. History of Osteoarthritis: Left Lower Extremity Right Lower Extremity History of Rheumatoid Arthritis: Not Applicable 2. Height: 5 ft. 3 in. 160.0 cm. Weight: 101.4 lb. oz. 45.995 kg. Patient's BMI: 18.0 3. Vital Signs: BP: 143/88 Pulse: 99 Resp: 14 Temp: 02 Sat: 97 ECG Mon: 4. Pain Intensity: 10+ 5. Fall Risk: Dizziness: N Needs help standing or walking: N Fallen in the last 3 months: N Fall risk comments: 6. Patient on Blood Thinner: None 7. History of Hypertension: N 8. Opioid Therapy greater than 6 weeks: Y Opiate Contract Signed: 12/28/15 9. Risk Assessment Tool Provided: LOW RISK 03/27 10. Functional Assessment Tool: 11. Recreational Drug Use: Never Drug Type: Tobacco Use: Current Every Day Smoker Tobacco Type: Cigarettes Amount or Packs/day: 1/2 ppd How Many Years: 50 Alcohol Use: No Frequency: Quant:
== END ==
LOC: PAIN 09-11 08:10
DX: M47.26 Other spondylosis with radiculopathy, lumbar region (principal); M41.86 Other forms of scoliosis, lumbar region; Z79.891 Long term (current) use of opiate analgesic

== ENCOUNTER → 2018-11-03 | Outpatient (CLI) | payer OTHER, BC ==
[~2018-11-03] VITALS: Ht 160 cm; Wt 45.1 kg
[2018-11-03 14:49] VITALS: BP 156/92
--- NOTE | 2018-11-03 14:54 | NUR ---
Pain Clinic Assessment: 1. History of Osteoarthritis: Left Lower Extremity Right Lower Extremity History of Rheumatoid Arthritis: Not Applicable 2. Height: 5 ft. 3 in. 160.0 cm. Weight: 99.4 lb. oz. 45.087 kg. Patient's BMI: 17.6 3. Vital Signs: BP: 156/92 Pulse: 81 Resp: 16 Temp: 02 Sat: 97 ECG Mon: 4. Pain Intensity: 10+ 5. Fall Risk: Dizziness: N Needs help standing or walking: N Fallen in the last 3 months: N Fall risk comments: 6. Patient on Blood Thinner: None 7. History of Hypertension: N 8. Opioid Therapy greater than 6 weeks: Y Opiate Contract Signed: 12/28/15 9. Risk Assessment Tool Provided: LOW RISK 03/27 10. Functional Assessment Tool: 11. Recreational Drug Use: Never Drug Type: Tobacco Use: Current Every Day Smoker Tobacco Type: Amount or Packs/day: How Many Years: Alcohol Use: No Frequency: Quant:
--- NOTE | 2018-11-06 16:33 | HPC ---
[facility] [place] [address] PAIN MANAGEMENT CONSULTATION Name: JORDEN GREGORIO Room #: REG SOFÍA Leonie.#: [id number] Admission: 11/03/18 Attend Phys: Ravi Palafox MD Discharge: Date of : 42 Report #: [id number] THIS REPORT FOR: //name// CC: Phill Palafox DATE OF SERVICE: 11/03/2018 Followup visit for lumbar radiculopathy, now right L5-S1 distribution. The patient will not get an MRI, but I did get plain film x-rays and it shows that there is severe disk space loss at L5-S1 and to S1, S2. She has a rudimentary disk at the S1-S2 level. There is transitional anatomy with bilateral lumbarization at that level. She also has levoscoliosis of the lumbar spine. Without an MRI to confirm we are determining her pain generator based on physical exam and symptoms. It is most likely that she has lumbar radiculopathy related to nerve impingement. PQRS review shows that; 1. She has a history of osteoarthritis of the right and left lower extremity. 2. BMI is 17.6. She has always been extremely slender. 3. Vital Signs; blood pressure 156/92, heart rate 81, respirations 16. 4. Pain intensity 10/10. 5. She is not a fall risk and has not fallen in the last 3 months. 6. No blood thinners. 7. No history of hypertension. She does take medication and is on an opioid agreement. It was signed in 2015. She is considered at low risk with a score of 1/10. She uses oxycodone 7.5/325 effectively to help her remain active. MME is 50. She denies use of alcohol, but continues to smoke and has been counseled. Physical examination and vital signs as noted. She is anxious female, moves from sitting to standing position, walks with antalgic features. Positive straight leg raising on the right today following an L5-S1 distribution. Mild numbness noted in both feet. Strength is symmetrical and some weakness with hip flexion, leg extension. There is no foot drop. Deep tendon reflexes are 2+ at knees, absent at the ankle. IMPRESSION: L5-S1 radiculopathy. Pain is primarily on the left. Left L5-S1 transforaminal epidural injection is recommended today. PROCEDURE: She was taken to fluoroscopic suite, placed prone, skin prepped with ChloraPrep. Skin anesthetized over the L5-S1 neural foramen. Using triplanar fluoroscopic views, a 22-gauge needle was advanced in the neural foramen. There [address] [address] PAIN MANAGEMENT CONSULTATION Name: JORDEN GREGORIO Room #: REG SOFÍA Hadley.#: [id number] Admission: 11/03/18 Attend Phys: Ravi Palafox MD Discharge: Date of : 41 Report #: [id number] was no blood or CSF aspirated. A 1 mL of Omnipaque was injected and excellent epidural spread was noted. It was followed by 3 mL of 0.5% lidocaine mixed with 40 mg of triamcinolone. I did not use full 80 for this injection. She is on osteoporotic risk. She tolerated the procedure well. I observed in recovery room for 45 minutes. She was discharged. Followup plan as needed. Medications have been ordered under terms of our agreement on separate visit. <ELECTRONICALLY SIGNED> By: Ravi Palafox MD 11/06/18 1633 [id number] [id number] Ravi Palafox MD /nt
== END | disposition home or self-care (01) ==
LOC: PAIN 07:01
DX: M54.17 Radiculopathy, lumbosacral region (principal); M19.90 Unspecified osteoarthritis, unspecified site; F17.210 Nicotine dependence, cigarettes, uncomplicated; Z79.899 Other long term (current) drug therapy; Z88.8 Allergy status to other drugs, medicaments and biological substances

== ENCOUNTER → 2018-12-08 | Outpatient (CLI) | payer OTHER, BC ==
[~2018-12-08] VITALS: Ht 162.6 cm; Wt 44.5 kg
[~2018-12-08] MED LIST changes: +OXYCODONE-ACET1 EAC2 PO
[2018-12-08 14:39] VITALS: BP 140/80
--- NOTE | 2018-12-08 14:41 | NUR ---
Pain Clinic Assessment: 1. History of Osteoarthritis: Left Lower Extremity Right Lower Extremity History of Rheumatoid Arthritis: Not Applicable 2. Height: 5 ft. 4 in. 162.6 cm. Weight: 98.0 lb. oz. 44.452 kg. Patient's BMI: 16.8 3. Vital Signs: BP: 140/80 Pulse: 78 Resp: 12 Temp: 02 Sat: 99 ECG Mon: 4. Pain Intensity: 10+ 5. Fall Risk: Dizziness: N Needs help standing or walking: N Fallen in the last 3 months: N Fall risk comments: 6. Patient on Blood Thinner: None 7. History of Hypertension: N 8. Opioid Therapy greater than 6 weeks: Y Opiate Contract Signed: 12/28/15 9. Risk Assessment Tool Provided: LOW RISK 03/27 10. Functional Assessment Tool: 11. Recreational Drug Use: Never Drug Type: Tobacco Use: Current Every Day Smoker Tobacco Type: Cigarettes Amount or Packs/day: 0.5 How Many Years: 60 Alcohol Use: No Frequency: Quant:
--- NOTE | 2018-12-11 08:38 | HPC ---
[facility] [place] [address] [address] PAIN MANAGEMENT CONSULTATION Name: JORDEN GREGORIO Room #: REG SOFÍA Leonie.#: [id number] Admission: 12/08/18 ������������������ Attend Phys: Ravi Palafox MD Discharge: ������������������ Date of : 42 Report #: [id number] THIS REPORT FOR: //name// CC: Phill Palafox DATE OF SERVICE: 12/08/2018 Followup visit for low back pain with radiculopathy. The patient returns to pain clinic today with her , Eliezer. She was in the clinic for about 40 minutes today. A long discussion regarding chronic back pain, lumbago pain generator and treatments. We spanned all treatment options today including physical therapy, psychosocial treatments, remaining active, medications, injections, radiofrequency, implants and surgery. We discussed options at great length. She has continued to complain of daily pain. Her , Eliezer says she is moaning and groaning nearly every day. She scores her pain as an 8/10. Pain is worse after activities, but she does not slow down. She does take medication, which helps, but is now taking 5 oxycodone tablets per day. She feels that she was more consistently controlled at oxycodone 10/325 taken 4 times daily and 1 in the middle of the night to help with sleep. She has marked kyphoscoliosis. She does not have an anti-inflammatory in her list at this time and we discussed reinitiating a trial of Celebrex today. PQRS REVIEW: 1. History of diffuse osteoarthritis involving bilateral lower extremities, hips and knees. She has lumbar spondylosis. 2. BMI is 16.8. This is her normal. 3. Blood pressure 140/80, heart rate 78, respirations 12, O2 sat 99. 4. Pain intensity 10. 5. She has not fallen in the last 3 months, nor is she a fall risk. 6. She is on no blood thinners. 7. She denies history of hypertension. 8. She is on an opioid agreement signed in 2016, most recently. We reviewed the prescription drug monitoring program information. I reviewed her agreement with her. She is grateful for what pain relief she receives from it and denies significant side effects. She would be unable to garden and do many of the activities that she does without pain medication. She safeguards her medication carefully under terms of our written agreement. 9. She has completed an opioid risk tool and her score is 1. 10. Functional assessment tool . She does not let pain stop. 11. She continues to smoke ! she has been counseled. She understands this may [address] [address] PAIN MANAGEMENT CONSULTATION Name: JORDEN GREGORIO Room #: REG Rodrigo Gibson#: [id number] Admission: 12/08/18 ������������������ Attend Phys: Ravi Palafox MD Discharge: ������������������ Date of : 41 Report #: [id number] contribute significantly chronic pain. PHYSICAL EXAMINATION: Pleasant female, somewhat exacerbated by her unfortunate ongoing continue low back pain with radiculopathy. She moves easily from sitting to standing position. Her gait is nonantalgic. She is more comfortable standing than sitting. Her chest is clear. Her cardiac rhythm is regular. She has a rotational scoliosis apex of the rotation to about L2-L3. Tenderness across the lumbosacral segment including the sacroiliac joint on the left. IMPRESSION: 1. Chronic low back pain with spondylosis and radiculopathy. 2. Management of high risk medications under terms of written opioid agreement. I renewed her oxycodone 10/325, 5 times daily. I discussed long acting medication with her at some length. She is reluctant to take one. We will consider starting her either on fentanyl patch, Butrans patch or MS Contin in lieu of the multiple doses of oxycodone. Plan discussed further at next visit. Epidural injections have not been helpful as much as we had hoped. I will not pursue that therapy at this time, but consider in the future if her radiculopathy is worse. I do not think she is a good candidate for lumbar radiofrequency ablation and she refuses it at any rate. ��������������������������������������������� <ELECTRONICALLY SIGNED> ���������������������������������������� By: Ravi Palafox MD ��������������������������������������������� 12/11/18 0838 1607 0011 Ravi Palafox MD /nt
== END ==
LOC: PAIN 07:00
DX: M47.26 Other spondylosis with radiculopathy, lumbar region (principal); Z79.891 Long term (current) use of opiate analgesic

== ENCOUNTER → 2019-02-05 | Outpatient (CLI) | payer OTHER, BC ==
[~2019-02-05] VITALS: Ht 162.6 cm; Wt 45.4 kg
[~2019-02-05] MED LIST changes: +NUCYNTA50 MG PO
[2019-02-05 12:42] VITALS: BP 137/79
--- NOTE | 2019-02-05 12:52 | NUR ---
Pain Clinic Assessment: 1. History of Osteoarthritis: Left Lower Extremity Right Lower Extremity History of Rheumatoid Arthritis: DENIES 2. Height: 5 ft. 4 in. 162.6 cm. Weight: 100.0 lb. oz. 45.360 kg. Patient's BMI: 17.2 3. Vital Signs: BP: 137/79 Pulse: 87 Resp: 14 Temp: 02 Sat: 99 ECG Mon: 4. Pain Intensity: 110 5. Fall Risk: Dizziness: N Needs help standing or walking: N Fallen in the last 3 months: N Fall risk comments: 6. Patient on Blood Thinner: None 7. History of Hypertension: N 8. Opioid Therapy greater than 6 weeks: Y Opiate Contract Signed: 12/28/15 9. Risk Assessment Tool Provided: 1-LOW 10. Functional Assessment Tool: 11. Recreational Drug Use: Never Drug Type: Tobacco Use: Current Every Day Smoker Tobacco Type: Cigarettes Amount or Packs/day: 0.5 How Many Years: Alcohol Use: No Frequency: Quant:
== END ==
LOC: PAIN 07:00
DX: M47.26 Other spondylosis with radiculopathy, lumbar region (principal); F32.9 Major depressive disorder, single episode, unspecified; Z79.899 Other long term (current) drug therapy

== ENCOUNTER → 2019-03-09 | Outpatient (CLI) | payer OTHER, BC ==
[~2019-03-09] VITALS: Ht 162.6 cm; Wt 45.0 kg
[2019-03-09 14:29] VITALS: BP 149/73
--- NOTE | 2019-03-09 14:51 | NUR ---
Pain Clinic Assessment: 1. History of Osteoarthritis: Left Lower Extremity Right Lower Extremity History of Rheumatoid Arthritis: DENIES 2. Height: 5 ft. 4 in. 162.6 cm. Weight: 99.2 lb. oz. 44.997 kg. Patient's BMI: 17.0 3. Vital Signs: BP: 149/73 Pulse: 81 Resp: 14 Temp: 02 Sat: 98 ECG Mon: 4. Pain Intensity: 7 5. Fall Risk: Dizziness: N Needs help standing or walking: N Fallen in the last 3 months: N Fall risk comments: 6. Patient on Blood Thinner: None 7. History of Hypertension: N 8. Opioid Therapy greater than 6 weeks: Y Opiate Contract Signed: 12/28/15 9. Risk Assessment Tool Provided: 1-LOW 10. Functional Assessment Tool: 11. Recreational Drug Use: Never Drug Type: Tobacco Use: Current Every Day Smoker Tobacco Type: Cigarettes Amount or Packs/day: How Many Years: Alcohol Use: No Frequency: Quant:
--- NOTE | 2019-03-10 08:23 | HPC ---
[facility] [place] [address] [address] [place] [address] PAIN MANAGEMENT CONSULTATION Name: JORDEN GREGORIO Room #: REG SOFÍA Paige#: [id number] Admission: 03/09/19 Attend Phys: Kenisha Serrato Discharge: Date of : 41 Report #: [id number] THIS REPORT FOR: //name// CC: Kenisha Palafox MD DATE OF SERVICE: 03/09/2019 CHIEF COMPLAINT: Low back pain with radiculopathy. HISTORY OF PRESENT ILLNESS: This is a 78-year-old female who returns to the pain clinic today for a refill of her oxycodone that she uses to help treat her ongoing low back pain and radiculopathy. She is rating a pain score of 7/10 today. Her pain is worse with any activity, standing and lying down. She feels that the medications, now that she is back on oxycodone, are beneficial as well as relaxation. Dr. Palafox had given her a trial of Nucynta, starting on 02/05/2019. The patient called numerous times, stating that it was ineffective in controlling her pain, made her dizzy, made her legs feel numb and weak. We did increase her to a higher dose, seeing if it was not beneficial at the lower dose. The patient still found this ineffective. She did return these medications and we destroyed them after 5 days of trial of the Nucynta and returned her to the Percocet 10/325. She was instructed to take only a max of 5 pills a day, so she is here present today for a refill of her oxycodone. ALLERGIES: SHRIMP. CURRENT LIST OF MEDICATIONS: Oxycodone 10/325 up to 5 times a day, melatonin, naproxen, vitamin D, and Xopenex inhaler. PQRS: 1. She has osteoarthritis in her lower extremities. Denies any rheumatoid arthritis. 2. Height is 5 feet 4 inches, weight is 99, BMI is 17. 3. Vital signs 149/73, pulse is 81, respirations 14, oxygen sat is 98. 4. Pain score is 7/10. 5. Denies dizziness, does not need help walking or standing, has not fallen in the last 3 months. 6. She is not on any blood thinners or medicine for hypertension. 7. Opiate therapy is greater than 6 weeks; therefore, an opioid signed contract is on the chart. Risk assessment tool is low. Functional assessment is 47/70. 8. Recreational drug use, she denies. She is a current smoker of cigarettes and does not drink alcohol. According to the prescription monitoring system, [place] [address] PAIN MANAGEMENT CONSULTATION Name: JORDEN GREGORIO Room #: DIAMOND Gibson#: [id number] Admission: 03/09/19 Attend Phys: Kenisha Serrato Discharge: Date of : 41 Report #: [id number] fill her oxycodone. She reports she does safeguard this medication at all times. We reminded her that she is to take a max of 5 pills a day, no more than that, that is the prescribed amount. PHYSICAL EXAMINATION: GENERAL: This is alert and orientated, anorexic 78-year-old female who appears very anxious today. HEENT: Normocephalic, atraumatic. Extraocular eye muscles are intact. Mucous membranes are moist. BACK: She complains of lumbar sacral tenderness that radiates down her bilateral legs, following the L5-S1 dermatomal distribution. She has tenderness over the left sacroiliac joint. No edema present. EXTREMITIES: Lower extremity strength judged to be 5/5 in all major muscle groups. IMPRESSION: 1. Severe low back pain with lumbar radiculopathy. 2. Depression. 3. Lumbar spondylosis. 4. Management of high risk medications under terms of written opioid agreement. We reviewed the fact that opiate medications are being used to provide analgesia adequate to support activities of daily living, not attempting to achieve a specific pain score on the 0-10 Visual Analog Scale. The current opiate medications are providing sufficient analgesia to allow the patient to participate in activities of daily living. The patient is not exhibiting any aberrant behavior suggestive of drug diversion. The patient is not having any adverse reactions to medications. The patient is not suffering from daytime somnolence or mental acuity changes. The patient is managing opiate-induced constipation with appropriate dogy-orh-bfsbbrt agents and dietary considerations. The patient was counseled on concern for caution with operating a motor vehicle while using opiate medications. PLAN: 1. We discussed treatment options with the patient today. The patient is thankful to be back on her oxycodone. She reports the trial of Nucynta was "terrible." She had significant increased pain plus several side effects from this medication. She is currently taking her oxycodone 10/325 up to 5 times a day. She does report that she continues to be very active and does continue to have pain at all times, but thinks the oxycodone is much more beneficial. 2. I did encourage the patient to try and rest throughout the day even if it is 30-minute periods to see if that is beneficial in decreasing her pain. She did report she recently took a pain pill and did go to a ball game and sat for an hour and that she noticed her pain was very well controlled during that time period. 3. Scripts sent to her pharmacy at [facility] for oxycodone , #150 for [facility] [address] [place] [address] PAIN MANAGEMENT CONSULTATION Name: JORDEN GREGORIO Room #: REG SOFÍA Gibson#: [id number] Admission: 03/09/19 Attend Phys: Kenisha Serrato Discharge: Date of : 41 Report #: [id number] today and 4-week release by Dr. Ravi Palafox. He collaborated care today. The patient will return in 2 months for further medication refills as needed. <ELECTRONICALLY SIGNED> By: Kenisha Serrato 03/10/19 0823 1530 0027 Kenisha Serrato /nt
== END ==
LOC: PAIN 07:34
DX: M47.816 Spondylosis without myelopathy or radiculopathy, lumbar region (principal); F32.9 Major depressive disorder, single episode, unspecified; Z79.891 Long term (current) use of opiate analgesic

== ENCOUNTER → 2019-05-04 | Outpatient (CLI) | payer OTHER, BC ==
[~2019-05-04] VITALS: Ht 162.6 cm; Wt 46.5 kg
[2019-05-04 09:30] VITALS: BP 148/71
--- NOTE | 2019-05-04 09:43 | NUR ---
Pain Clinic Assessment: 1. History of Osteoarthritis: Left Lower Extremity Right Lower Extremity History of Rheumatoid Arthritis: DENIES 2. Height: 5 ft. 4 in. 162.6 cm. Weight: 102.6 lb. oz. 46.539 kg. Patient's BMI: 17.6 3. Vital Signs: BP: 148/71 Pulse: 70 Resp: 14 Temp: 02 Sat: ECG Mon: 4. Pain Intensity: 5-6 5. Fall Risk: Dizziness: N Needs help standing or walking: N Fallen in the last 3 months: N Fall risk comments: 6. Patient on Blood Thinner: None 7. History of Hypertension: N 8. Opioid Therapy greater than 6 weeks: Y Opiate Contract Signed: 12/28/15 9. Risk Assessment Tool Provided: 1-LOW 10. Functional Assessment Tool: 11. Recreational Drug Use: Never Drug Type: Tobacco Use: Current Every Day Smoker Tobacco Type: Amount or Packs/day: How Many Years: Alcohol Use: No Frequency: Quant:
--- NOTE | 2019-05-05 08:08 | HPC ---
[facility] [address] [place] [address] PAIN MANAGEMENT CONSULTATION Name: JORDEN GREGORIO Room #: REG SHANTLELRodrigo Hadley.#: [id number] Admission: 05/04/19 Attend Phys: Kenisha Serrato Discharge: Date of : 41 Report #: [id number] THIS REPORT FOR: cc: Phill Calvillo MD, Neal A. MD Hocker, Amanda CNS ~ THIS REPORT FOR: //name// CC: Kenisha Calvillo DATE OF SERVICE: 05/04/2019 CHIEF COMPLAINT: Low back pain with radiculopathy. HISTORY OF PRESENT ILLNESS: This is a very pleasant 78-year-old female who returns to the pain clinic today for refill of her medications. Today, she is rating her pain at a 5-6/10. She feels like she is doing better. She does report that one day since we have seen her last, she woke up feeling with very little pain. She is unsure why that was. She had not changed any of her activities and she states overall she has been doing quite a bit better than she had last fall. She does continue to have pain in her low back that radiates into her buttocks, into her feet. It is an aching feeling, worse with sitting or lying down, and the cold damp weather does affect her, but she feels the medication as well as movement and relaxation techniques are beneficial. She denies any problems with constipation or daytime sleepiness. ALLERGIES: SHELLFISH. CURRENT LIST OF MEDICATIONS: Oxycodone 10/325 every 4 hours p.r.n., melatonin, naproxen, vitamin D, and Xopenex inhaler p.r.n. PQRS: 1. She has osteoarthritis in her bilateral lower extremities. Denies any rheumatoid arthritis. 2. Height is 5 feet 4 inches, weight is 102, BMI is 17. She has gained 3 pounds since our last visit. 3. Vital Signs: 148/71, pulse is 70, respirations 14, oxygen sat is 100. 4. Pain score is 5-6. 5. Denies dizziness, does not need help walking or standing, has not fallen in the last 3 months. 6. The patient is not on any blood thinners, but does not take medicine for hypertension. 7. Opiate therapy is greater than 6 weeks; therefore, an opioid signed contract is on the chart. Risk assessment tool is low. Functional assessment is 47/70. 8. Recreational drug use, she denies. [place] [address] PAIN MANAGEMENT CONSULTATION Name: JORDEN GREGORIO Room #: REG SOFÍA Gibson#: [id number] Admission: 05/04/19 Attend Phys: Kenisha Serrato Discharge: Date of : 42 Report #: [id number] drink alcohol. According to the prescription monitoring system, she is due to fill her medications this week in a timely fashion. She does safeguard her medications. Her current morphine mEq is 80 MME; therefore, she is seen every 2 months in our clinic. PHYSICAL EXAMINATION: GENERAL: This is alert and orientated, anorexic 78-year-old female who appears her stated age, placing her current pain score at 5-6 today. HEENT: Normocephalic, atraumatic. Extraocular eye muscles are intact. Mucous membranes are moist. MUSCULOSKELETAL: She has lumbosacral tenderness that radiates down to her sacroiliac joint on the left, then radiates down her lower extremities following the L5-S1 dermatomal distribution. Her lower extremity strength judged to be 5/5 in all major muscle groups. IMPRESSION: 1. Severe low back pain with lumbar radiculopathy. 2. Spondylosis. 3. Depression. 4. Management of high risk medications under terms of written opioid agreement. We reviewed the fact that opiate medications are being used to provide analgesia adequate to support activities of daily living, not attempting to achieve a specific pain score on the 0-10 Visual Analog Scale. The current opiate medications are providing sufficient analgesia to allow the patient to participate in activities of daily living. The patient is not exhibiting any aberrant behavior suggestive of drug diversion. The patient is not having any adverse reactions to medications. The patient is not suffering from daytime somnolence or mental acuity changes. The patient is managing opiate-induced constipation with appropriate lnmg-wrz-usqsnmn agents and dietary considerations. The patient was counseled on concern for caution with operating a motor vehicle while using opiate medications. A physical exam was performed and the patient's functional status was evaluated. All patients with back pain were advised against the bed rest greater than 4 days and were advised to return to normal activities. Pain score assessment was noted and the treatment plan was reviewed with the patient. All current medications, both prescribed and OTC were reviewed and reconciled on the electronic medical record. Tobacco screening was accomplished and smoking cessation was advised when indicated. BMI was noted and diet/exercise modification was recommended for all patients following outside normal parameters. [facility] [address] [place] [address] PAIN MANAGEMENT CONSULTATION Name: JORDEN GREGORIO Room #: REG CLRodrigo Gibson#: [id number] Admission: 05/04/19 Attend Phys: Kenisha Serrato Discharge: Date of : 42 Report #: [id number] I reviewed with the patient today their responsibilities to safeguard prescription medications, reviewed their responsibility to utilize medications only as prescribed by the physician. They are to seek and receive pain medications only from 1 physician group ( [facility]). They are to use 1 pharmacy and keep the clinic informed if they change pharmacies. Their responsibilities include making followup visits in a timely fashion and to avoid abrupt discontinuation of medication usage. Their responsibilities further include bringing their medications (bottles from the pharmacy with residual pills) to the visit for possible confirmation of pill counts and the patient understands it is their responsibility to submit to random drug screens to ensure both that the medications prescribed are present, and that no other controlled substances are present. All prescriptions provided today were generated electronically. PLAN: 1. We discussed treatment options with the patient today. The patient finds the oxycodone very beneficial in controlling her pain. States overall she is doing much better than she did last fall. She remains active, walking her dog daily, and helping take care of her grandchildren. 2. We will have Dr. Ravi Palafox some prescriptions for oxycodone , #150 for today and 4-week release. The patient will return in [address] appointment[address] Palafox discussed this case with me and collaborated care. <ELECTRONICALLY SIGNED> By: Kenisha Serrato 05/05/19 0808 1058 1226 Kenisha Serrato /isaias
== END ==
LOC: PAIN 06:43
DX: M47.26 Other spondylosis with radiculopathy, lumbar region (principal); F32.9 Major depressive disorder, single episode, unspecified; Z91.013 Allergy to seafood; Z79.899 Other long term (current) drug therapy

== ENCOUNTER → 2019-06-29 | Outpatient (CLI) | payer OTHER, BC ==
[~2019-06-29] VITALS: Ht 162.6 cm; Wt 44.5 kg
[2019-06-29 10:55] VITALS: BP 146/84
--- NOTE | 2019-06-29 11:07 | NUR ---
Pain Clinic Assessment: 1. History of Osteoarthritis: Left Lower Extremity Right Lower Extremity History of Rheumatoid Arthritis: DENIES 2. Height: 5 ft. 4 in. 162.6 cm. Weight: 98.2 lb. oz. 44.543 kg. Patient's BMI: 16.8 3. Vital Signs: BP: 146/84 Pulse: 89 Resp: 16 Temp: 02 Sat: 97 ECG Mon: 4. Pain Intensity: 5-6 5. Fall Risk: Dizziness: N Needs help standing or walking: N Fallen in the last 3 months: N Fall risk comments: 6. Patient on Blood Thinner: None 7. History of Hypertension: N 8. Opioid Therapy greater than 6 weeks: Y Opiate Contract Signed: 12/28/15 9. Risk Assessment Tool Provided: 1-LOW 10. Functional Assessment Tool: 11. Recreational Drug Use: Never Drug Type: Tobacco Use: Current Every Day Smoker Tobacco Type: Amount or Packs/day: How Many Years: Alcohol Use: No Frequency: Quant:
--- NOTE | 2019-06-30 07:55 | HPC ---
[facility] [address] [place] [address] PAIN MANAGEMENT CONSULTATION Name: JORDEN GREGORIO Room #: REG SOFÍA Leonie.#: [id number] Admission: 06/29/19 Attend Phys: Kenisha Serrato Discharge: Date of : 41 Report #: [id number] THIS REPORT FOR: cc: Phill Calvillo MD, Neal A. MD Hocker,Kenisha ZEPEDA ~ CC: Ravi Palafox MD DATE OF SERVICE: 06/29/2019 CHIEF COMPLAINT: Low back pain with radiculopathy. HISTORY OF PRESENT ILLNESS: This is a very pleasant 78-year-old female who returns to the pain clinic today for refill of her opioid medications that she finds very beneficial in controlling her low back pain and bilateral leg pain. She reports that her pain is slightly lower today at 5/6. She is unsure why, but is thankful. She says that recently the weather changes had increased her pain, especially in her calf feeling very tightness and sharp, needle like presentation, but that has resolved. Currently, she is having pain in her lower back that radiates down her buttocks to her knees. It is occasional sharp, achy pain that is worse with sitting and lying down. She has not been able to walk as much as she would like since the COVID virus and trying to stay at home, but is happy that her pain has slightly decreased. Today, she would like refills of her oxycodone. ALLERGIES: SHELLFISH. CURRENT LIST OF MEDICATIONS: Oxycodone 10/325 q. 4 hours p.r.n., melatonin, naproxen, vitamin D, and Xopenex inhaler. PQRS: 1. She has osteoarthritis in her lower extremities. Denies any rheumatoid arthritis. 2. Height is 5 feet 4 inches, weight is 98, BMI is 16. 3. Vital signs 146/84, pulse is 89, respirations 16, oxygen sat 97. 4. Pain score 5-6. 5. Denies dizziness, does not need help walking or standing, has not fallen in the last 3 months. 6. The patient is not on any blood thinners, no medicine for hypertension. 7. Opioid therapy is greater than 6 weeks; therefore, an opioid signed contract is on the chart. Risk assessment tool is low. Functional assessment is 47/70. 8. Recreational drug use, she denies a current smoker and she does not drink alcohol. According to the prescription monitoring system, the patient is due for her refills later this week. She is filling in a timely fashion. According to the [address] [address] PAIN MANAGEMENT CONSULTATION Name: JORDEN GREGORIO [id number] Admission: 06/29/19 Attend Phys: Kenisha Serrato Discharge: Date of : 41 Report #: [id number] CDC guidelines, her morphine mEq is 80 MMEs. PHYSICAL EXAMINATION: GENERAL: This is alert and orientated, anorexic 78-year-old female who appears her stated age, placing her current pain score at 5/10 today. HEENT: Normocephalic, atraumatic. Extraocular eye muscles are intact. Mucous membranes are moist. MUSCULOSKELETAL: She has tenderness in her lower back that radiates into her bilateral legs following the L5-S1 dermatomal distribution. Her lower extremity strength judged to be 5/5 in all major muscle groups, slight tenderness in her bilateral calves today. IMPRESSION: 1. Severe low back pain with lumbar radiculopathy. 2. Depression. 3. Lumbar spondylosis. 4. Management of high risk medications under terms of written opioid agreement. We reviewed the fact that opiate medications are being used to provide analgesia adequate to support activities of daily living, not attempting to achieve a specific pain score on the 0-10 Visual Analog Scale. The current opiate medications are providing sufficient analgesia to allow the patient to participate in activities of daily living. The patient is not exhibiting any aberrant behavior suggestive of drug diversion. The patient is not having any adverse reactions to medications. The patient is not suffering from daytime somnolence or mental acuity changes. The patient is managing opiate-induced constipation with appropriate koak-aui-yyaijpw agents and dietary considerations. The patient was counseled on concern for caution with operating a motor vehicle while using opiate medications. PLAN: 1. We discussed treatment options with the patient today. The patient finds current medication regimen very beneficial in helping relieve her low back pain and occasional epidurals. We will refill her oxycodone 10/325, #150 for today and 4 weeks supply. These will be sent electronically by Dr. Ravi Palafox. 2. We discussed in great length with the COVID virus, the patient has been able to see her family due to them being quarantine since they recently returned from [place]. The patient has been very tearful, not being able to see her grandchildren. She states that she does have problems with depression, but is usually not crying. She said this has been very difficult on her, though she does not want to get sick, so she is staying away from them. 3. We talked about seeing them from a distance at least 6 feet or further. She is going to try and see them outside later this week. 4. We did talk about possible disruption in the supply chain for medications. We are hopeful that this does not happen, but we want her to anticipate. This could be a possibility and to try and decrease her medications even by half a [facility] [address] [place] [address] PAIN MANAGEMENT CONSULTATION Name: JORDEN GREGORIO Room #: REG CLI M.Bobby.#: [id number] Admission: 06/29/19 Attend Phys: Kenisha Serrato Discharge: Date of : 41 Report #: [id number] pill once a day to have a small supply. The patient verbalizes understanding. She will try to attempt this. 5. The patient is seen in collaboration with Dr. Ravi Palafox who she did see as well today. <ELECTRONICALLY SIGNED> By: Kenisha Serrato 06/30/19 0755 1142 1223 Kenisha Serrato /nt
== END ==
LOC: PAIN 06:40
DX: M47.26 Other spondylosis with radiculopathy, lumbar region (principal); F32.9 Major depressive disorder, single episode, unspecified; F11.20 Opioid dependence, uncomplicated

== ENCOUNTER → 2019-08-24 | Outpatient (CLI) | payer OTHER, BC ==
--- NOTE | 2019-08-25 07:48 | HPC ---
[facility] [address] [place] [address] PAIN MANAGEMENT CONSULTATION Name: VI GREGORIO Room #: REG [facility] MMarsha.#: [id number] Admission: 08/24/19 Attend Phys: Kenisha Serrato Discharge: Date of : 41 Report #: [id number] THIS REPORT FOR: cc: Phill Calvillo MD, Neal A. MD Hocker,Kenisha ZEPEDA ~ CC: Kenisha Palafox MD DATE OF SERVICE: 08/24/2019 This is a telemed appointment due to the coronavirus, speaking with the patient from 9:40-9:55 that the patient consented own via audiovisual telehealth communication. CHIEF COMPLAINT: Low back pain with radiculopathy, newly diagnosed breast cancer. HISTORY OF PRESENT ILLNESS: This is a very pleasant 79-year-old female who I am speaking with for a telemed appointment today. She has been recently diagnosed with breast cancer with metastasis to her liver. The patient reports to me that she is going to start chemotherapy on Saturday. She recently had a port placed in her chest wall that has been giving her discomfort. She states she will need to have Radiation Oncology after her chemotherapy and then possibly surgery, but she is unsure when that will take place. She states that Luz Waller, her oncologist has performed a CAT scan as well as a bone scan that she will have sent to Dr. Ravi Palafox. Vi states that her pain score today is an average of 6. Sometimes her pain is less, though she is having increasing pain in her breast as well as her port site. She feels that her sacroiliac area in her lower back has been slightly decreased. She feels that the Percocet 10/325 has been beneficial in controlling most of her pain. She is worried about when she starts chemotherapy and treatments if her pain will increase. Today, we are speaking with her over the phone for refill of her medications prior to starting her chemotherapy and she is due to fill her medications this week. ALLERGIES: SHELLFISH. CURRENT LIST OF MEDICATIONS: Oxycodone 10/325, melatonin, naproxen, vitamin D, and Xopenex. PQRS: 1. She has osteoarthritis in her lower extremities. Denies any rheumatoid arthritis. We did not weigh her or do vital signs since this is a telemed appointment done over the telephone. Her pain score today is an average of 6. [address] [address] PAIN MANAGEMENT CONSULTATION Name: VI GREGORIO Room #: REG CLI Paige#: [id number] Admission: 08/24/19 Attend Phys: Kenisha Serrato Discharge: Date of : 41 Report #: [id number] She denies any dizziness, does not need help walking or standing, has not fallen in the last 3 months. 2. The patient is not on any blood thinners and does not take medicines for hypertension. 3. Her opioid therapy is greater than 6 weeks; therefore, an opioid signed contract is on the chart. Her risk assessment tool is low. Her risk assessment is 47/70. 4. She denies recreational drug use. She is not a smoker and does not drink alcohol. According to the prescription monitoring system, the patient is filling appropriately in a timely fashion. She is due to fill her medicines this week. Her morphine mEq is 77 according to the CDC guidelines. PHYSICAL EXAMINATION: This is a review of systems due to a telemed appointment. She is alert and orientated, answering all my questions appropriately. She is a good historian. She is rating her pain score at 6/10, very apprehensive about upcoming treatment and the unknown states her breast is painful as well as her port in her chest wall. She has tenderness in her lower back. IMPRESSION: 1. Severe low back pain with lumbar radiculopathy. 2. Breast cancer, newly diagnosed with metastasis to the liver. 3. Lumbar spondylosis. 4. High risk medications under written opioid agreement. We reviewed the fact that opiate medications are being used to provide analgesia adequate to support activities of daily living, not attempting to achieve a specific pain score on the 0-10 Visual Analog Scale. The current opiate medications are providing sufficient analgesia to allow the patient to participate in activities of daily living. The patient is not exhibiting any aberrant behavior suggestive of drug diversion. The patient is not having any adverse reactions to medications. The patient is not suffering from daytime somnolence or mental acuity changes. The patient is managing opiate-induced constipation with appropriate puny-mgi-aubnidw agents and dietary considerations. The patient was counseled on concern for caution with operating a motor vehicle while using opiate medications. PLAN: 1. We discussed treatment options with the patient today. I had discussed this plan with Dr. Ravi Palafox as well. We are worried that the patient's pain may have increase due to chemotherapy and radiation. I did discuss with the patient long-acting opioid medications versus short-acting. Patient had been on long-acting in the past and understands them. We did discuss fentanyl patch in case the patient is nauseated and unable to take her oral medications, this may be an option. We also discussed long-acting Xtampza and MS Contin as a possible [address] [address] PAIN MANAGEMENT CONSULTATION Name: VI GREGORIO Room #: REG SOFÍA Hadley#: [id number] Admission: 08/24/19 Attend Phys: Kenisha Serrato Discharge: Date of : 41 Report #: [id number] medication alternative or addition to her oxycodone. At this time, we will continue Vi on Oxycodone 10/325 up to 5 tablets a day, quantity 150 and will send them electronically by Dr. Ravi Palafox for today and 4 weeks supply with the understanding that the patient will call us if her pain significantly increases or if she is unable to tolerate oral medications. We will trial a long-acting opioid for her. 2. We encouraged the patient to keep us apprised of any changes in her medical status and also encouraged her to send a copy of the CAT scan and the bone scan that she did have performed by Dr. Waller. 3. The patient discussed via telephone today in collaboration with Dr. Ravi Palafox. <ELECTRONICALLY SIGNED> By: Kenisha Serrato 08/25/19 0748 1032 1226 Kenisha Serrato /nt
== END ==
LOC: TELEPC 06:49 → PAIN 12:42
DX: C78.7 Secondary malignant neoplasm of liver and intrahepatic bile duct (principal); C50.919 Malignant neoplasm of unspecified site of unspecified female breast; M47.26 Other spondylosis with radiculopathy, lumbar region; F11.20 Opioid dependence, uncomplicated; Z91.013 Allergy to seafood; Z79.899 Other long term (current) drug therapy

== ENCOUNTER → 2019-09-17 | Outpatient (CLI) | payer OTHER, BC | LOC: HYPER 10:34 | PROVIDERS: ATTEND Emergency Medicine | DX: L98.492 Non-pressure chronic ulcer of skin of other sites with fat layer exposed (principal); C50.412 Malignant neoplasm of upper-outer quadrant of left female breast; C79.81 Secondary malignant neoplasm of breast; D70.1 Agranulocytosis secondary to cancer chemotherapy; T65.224D Toxic effect of tobacco cigarettes, undetermined, subsequent encounter; J45.909 Unspecified asthma, uncomplicated; M19.90 Unspecified osteoarthritis, unspecified site; F41.9 Anxiety disorder, unspecified; F17.200 Nicotine dependence, unspecified, uncomplicated ==

== ENCOUNTER → 2019-10-06 | Outpatient (CLI) | payer OTHER, BC | LOC: HYPER 09:03 | PROVIDERS: ATTEND Emergency Medicine | DX: T65.224D Toxic effect of tobacco cigarettes, undetermined, subsequent encounter (principal); L98.492 Non-pressure chronic ulcer of skin of other sites with fat layer exposed; C50.412 Malignant neoplasm of upper-outer quadrant of left female breast; D70.1 Agranulocytosis secondary to cancer chemotherapy; R21 Rash and other nonspecific skin eruption; M19.90 Unspecified osteoarthritis, unspecified site; J45.909 Unspecified asthma, uncomplicated; F17.200 Nicotine dependence, unspecified, uncomplicated; F41.9 Anxiety disorder, unspecified ==

== ENCOUNTER → 2019-10-28 | Outpatient (CLI) | payer OTHER, BC ==
[~2019-10-28] MED LIST changes: +NEURONTIN 300M300 M2 PO
== END ==
LOC: HYPER 12:57
PROVIDERS: ATTEND Emergency Medicine
DX: R21 Rash and other nonspecific skin eruption (principal); L98.492 Non-pressure chronic ulcer of skin of other sites with fat layer exposed; C50.412 Malignant neoplasm of upper-outer quadrant of left female breast; D70.1 Agranulocytosis secondary to cancer chemotherapy; T65.224D Toxic effect of tobacco cigarettes, undetermined, subsequent encounter; J45.909 Unspecified asthma, uncomplicated; F17.200 Nicotine dependence, unspecified, uncomplicated; F41.9 Anxiety disorder, unspecified

== ENCOUNTER → 2019-11-16 | Outpatient (CLI) | payer OTHER, BC ==
[~2019-11-16] MED LIST changes: +PERCOCET 10-321 EAC1 PO
--- NOTE | 2019-11-16 14:55 | HPC ---
[facility] [place] [address] PAIN MANAGEMENT CONSULTATION Name: JORDEN GREGORIO Room #: REG SOFÍA Leonie.#: [id number] Admission: 11/16/19 Attend Phys: Kenisha Serrato Discharge: Date of : 41 Report #: [id number] THIS REPORT FOR: cc: Phill Calvillo MD, Neal A. MD Hocker,Kenisha ZEPEDA ~ CC: Ravi Palafox MD DATE OF SERVICE: 11/16/2019 CHIEF COMPLAINT: Low back pain with radiculopathy and breast cancer with neuropathy. This is a telemedicine appointment due to the patient currently undergoing chemotherapy and immunosuppressed that the patient has consented to. We spoke for a total of 20 minutes from 10:45-11:05. HISTORY OF PRESENT ILLNESS: This is a very pleasant 79-year-old female who I am speaking with via the telephone today for her telemedicine appointment. She has currently just finished her fourth chemotherapy treatment. She reports she has two treatments left for her breast cancer that she was diagnosed with earlier this year. She is going to have a CT and bone scan on Saturday this week and then will take her next treatment of chemotherapy next week. She states she has been staying in the house for most at this time. She is worried due to the coronavirus and her white count being slightly low, though she reports she has not needed to take any additional medicines to help boost her immune system. She feels that she is still at high risk. She is staying home. The patient rates her pain score today at 8/10. She has developed neuropathy in her hands and her legs from her chemotherapy. She states that her legs are achy and numb at times. She is also going to the wound clinic due to some lesions that she has on her hands. She is being treated by Dr. Tom Jewell for this. She uses Silvadene and steroid cream. She reports that her back continues to be aching at all times. She does find the oxycodone beneficial, but feels that her pain has increased since she is experiencing numbness and tingling. She denies problems with constipation. She does have some sleepiness as a result of her chemotherapy. She does not associate this with her pain medications. ALLERGIES: SHELLFISH. CURRENT LIST OF MEDICATIONS: Oxycodone 10/325, melatonin, Xopenex. PQRS: She has osteoarthritis in her lower extremities. Denies any rheumatoid arthritis. We did not weigh her or do vital signs due to this being a telemedicine appointment, but per the patient report, she has gained 5 pounds. During this time with her chemotherapy she is trying to eat healthy. Pain score [address] [address] PAIN MANAGEMENT CONSULTATION Name: JORDEN GREGORIO Room #: REG SOFÍA Gibson#: [id number] Admission: 11/16/19 Attend Phys: Kenisha Serrato Discharge: Date of : 41 Report #: [id number] today is 8/10. She denies any dizziness. She does not need help walking or standing. She has not fallen. The patient is not on any blood thinners and does not take any medicine for hypertension. Her opioid therapy is greater than 6 weeks; therefore, there is an opioid signed contract on the chart. Her risk assessment is low. Functional assessment is 47/70. The patient denies any recreational drugs. She is not a smoker and does not drink alcohol. According to the prescription monitoring system, she is filling appropriately for her medications in a timely fashion. Her morphine milliequivalent is 77 according to the CDC guidelines. PHYSICAL EXAMINATION: This is a review of systems due to a Telemed appointment. She is alert and orientated, slightly anxious. She is answering all my questions appropriately. She is a good historian. Complains of numbness and tingling in her fingers as well as in her bilateral legs. She has pain in her low back that radiates into her legs. She states she has sore lesions on her hands that are wrapped by the wound clinic. IMPRESSION: 1. Severe low back pain with lumbar radiculopathy. 2. Breast cancer, newly diagnosed with metastasis to the liver. 3. Peripheral neuropathy. 4. Lumbar spondylosis. 5. High risk medications under terms of written opioid agreement. We reviewed the fact that opiate medications are being used to provide analgesia adequate to support activities of daily living, not attempting to achieve a specific pain score on the 0-10 Visual Analog Scale. The current opiate medications are providing sufficient analgesia to allow the patient to participate in activities of daily living. The patient is not exhibiting any aberrant behavior suggestive of drug diversion. The patient is not having any adverse reactions to medications. The patient is not suffering from daytime somnolence or mental acuity changes. The patient is managing opiate-induced constipation with appropriate bqpa-hme-skazkgy agents and dietary considerations. The patient was counseled on concern for caution with operating a motor vehicle while using opiate medications. PLAN: 1. We discussed treatment options with the patient today. The patient states that her pain has increased since she has been on chemotherapy, currently having peripheral neuropathy issues as a result of her chemo. She was given a script of gabapentin [address] Burns, though she is reluctant to start that, she is wondering if we may start slower. I have agreed to start her on gabapentin 100 mg at bedtime, instructing the patient to take one tablet for 5 nights, then increase to 200 mg at bedtime for 5 nights, then our goal dose will be 300 mg at bedtime. If she is tolerating this well, but still continues to have problems [facility] [address] [place] [address] PAIN MANAGEMENT CONSULTATION Name: JORDEN GREGORIO Room #: REG [facility] M.R.#: [id number] Admission: 11/16/19 Attend Phys: Kenisha Serrato Discharge: Date of : 41 Report #: [id number] with neuropathy in her hands and legs, we may start a daytime dose. 2. We will continue her on her oxycodone 10/325 up to 5 tablets a day, quantity 150. These will be sent electronically by Dr. Palafox for today and 4-week release. 3. I have encouraged the patient that the next appointment we will hopefully be able to see her in-person. She should be finished with chemotherapy be able to come to our clinic at that time. I encouraged her to make the appointment in a timely fashion, so she could see Dr. Palafox for that visit. The patient is agreeable with this. The patient is seen today in collaboration with Dr. Ravi Palafox for this Telemed appointment. <ELECTRONICALLY SIGNED> By: Kenisha Serrato 11/16/19 1455 1120 1330 Kenisha Serrato /isaias
== END ==
LOC: TELEPC 06:56 → PAIN 06:56
PROVIDERS: ATTEND Clinical Nurse Specialist Adult Health
DX: C50.919 Malignant neoplasm of unspecified site of unspecified female breast (principal); C78.7 Secondary malignant neoplasm of liver and intrahepatic bile duct; G90.09 Other idiopathic peripheral autonomic neuropathy; M47.26 Other spondylosis with radiculopathy, lumbar region; F11.20 Opioid dependence, uncomplicated; Z88.8 Allergy status to other drugs, medicaments and biological substances; Z79.899 Other long term (current) drug therapy

== ENCOUNTER → 2019-12-01 | Outpatient (CLI) | payer OTHER, BC | LOC: HYPER 13:01 | PROVIDERS: ATTEND Emergency Medicine | DX: R21 Rash and other nonspecific skin eruption (principal); L98.492 Non-pressure chronic ulcer of skin of other sites with fat layer exposed; C50.412 Malignant neoplasm of upper-outer quadrant of left female breast; D70.1 Agranulocytosis secondary to cancer chemotherapy; T65.224D Toxic effect of tobacco cigarettes, undetermined, subsequent encounter; J45.909 Unspecified asthma, uncomplicated; M19.90 Unspecified osteoarthritis, unspecified site; F41.9 Anxiety disorder, unspecified; F17.200 Nicotine dependence, unspecified, uncomplicated; Z85.89 Personal history of malignant neoplasm of other organs and systems ==

== ENCOUNTER → 2020-01-07 | Outpatient (CLI) | payer OTHER, BC ==
[~2020-01-07] VITALS: Ht 162.6 cm; Wt 46.7 kg
[~2020-01-07] MED LIST changes: +OXYCODONE HCL E10 MG PO
--- NOTE | ~2020-01-07 | HPC ---
[facility] [address] [place] [address] PAIN MANAGEMENT CONSULTATION Name: JORDEN GREGORIO Room #: REG SOFÍA MaddyBobby.#: [id number] Admission: 01/07/20 Attend Phys: Ravi Palafox MD Discharge: Date of : 41 Report #: [id number] CC: PRUDENCIO TURNER MD DATE OF SERVICE: 01/07/2020 SUBJECTIVE: Followup visit for chronic pain, now complaining also pain related to cancer and chemotherapy. The patient is a longstanding patient of our clinic and has been on opioids dating back over 10 years. She came to us taking pain medication in 2007 and was established on an opioid agreement. She had been fairly stable over the years on what was initially oxycodone 5/325, taken 3 times a day and over the years, it has become tolerant. Her dose is now closer to 60 mg a day of oxycodone. She has been complaining of her chronic back pain associated with radiculopathy and has developed neuropathy of more widespread nature. She complains of pain in both her upper and lower extremities. It is aching, numb at times, has some burning component as well. She was given gabapentin, but is very resistant to medications once she has her mind made up. Dr. Turner has been very insistent on her completing at least a low-dose trial to get through the initial side effects, but she has repeatedly told everyone that she does not want to take gabapentin, feels that it has no benefit and makes her feel bad. I reiterated Dr. Turner's message today and suggested Lyeduardoa, which was met with resistance and rolling of the eyes. I spoke with the patient; her , Eliezer; and her daughter, Bev, all last Saturday over the phone when she was having increased pain and a crisis of sorts. The 5 oxycodone tablets a day were not as effective and I initiated OxyContin 10 mg morning and evening as a baseline hoping that this would provide additional pain relief. This is a 30-40% increase in her daily pain medication from 50 mg to 70. She tried it over the weekend and reports today, now 5 days in, that the medication is no better than taking a single additional oxycodone per day. This would actually be a lower mg dosage per day if she takes 6 short-acting oxycodone 10/325 tablets versus the OxyContin 10 mg b.i.d. plus 5 additional breakthroughs. I have agreed that we will go the short-acting route after giving her an option to increase her baseline medicine OxyContin to 20 mg or to switch to a new long-acting medicine. We have had good success with neuropathic pain using methadone as a baseline medicine in cancer patients; however, this was met also with resistance, so I did not pursue it further with her. PHYSICAL EXAMINATION: Today, her BMI is 17.7, blood pressure 181/80, heart rate 99, respirations 14, O2 sat 100, pain intensity 10/10. She has not fallen. She is able to get up and ambulate on her own. She has diffuse tenderness of her neck and shoulders, diffuse tenderness across her low back, pain in both buttocks with straight leg raising. She complains of burning sensations into both legs and both feet. Mild allodynia. IMPRESSION: 1. Chronic intractable back pain with radiculopathy and spondylosis. 2. Cancer-related pain with metastasis to liver; peripheral neuropathy, possibly related to chemotherapeutic agents. She has also had increased pain with Neulasta and feels that the medication and symptoms correlate. 3. Management of high-risk medications under terms of written opioid agreement per CDC guidelines. PLAN: Her medications were renewed for her today at oxycodone 10/325 one tablet q.4 hours p.r.n. with a maximum of 6 tablets per day. I have discontinued OxyContin. I have encouraged her to go ahead and start on the antidepressant Dr. Turner has provided for her. In her usual fashion, she has been resistant to taking it, claiming that she is not depressed. I told her it may help with her pain. I would like for her to remain on it for a full month to see if it does have pain-relieving effects and told her that it might take a while for it to work. Followup visit scheduled in our pain clinic in 1 month. By: 1526 1602 Ravi Palafox MD /nt
[2020-01-07 12:59] VITALS: BP 181/100
--- NOTE | 2020-01-07 13:26 | NUR ---
Pain Clinic Assessment: 1. History of Osteoarthritis: Left Lower Extremity Right Lower Extremity History of Rheumatoid Arthritis: DENIES 2. Height: 5 ft. 4 in. 162.6 cm. Weight: 103.0 lb. oz. 46.720 kg. Patient's BMI: 17.7 3. Vital Signs: BP: 181/100 Pulse: 99 Resp: 14 Temp: 02 Sat: 100 ECG Mon: 4. Pain Intensity: 10 5. Fall Risk: Dizziness: N Needs help standing or walking: N Fallen in the last 3 months: N Fall risk comments: 6. Patient on Blood Thinner: None 7. History of Hypertension: N 8. Opioid Therapy greater than 6 weeks: Y Opiate Contract Signed: 12/28/15 9. Risk Assessment Tool Provided: 1-LOW 10. Functional Assessment Tool: 11. Recreational Drug Use: Never Drug Type: Tobacco Use: Former Smoker Tobacco Type: Amount or Packs/day: How Many Years: Alcohol Use: No Frequency: Quant:
== END ==
LOC: PAIN 06:44
PROVIDERS: ATTEND Anesthesiology Pain Medicine
DX: M47.26 Other spondylosis with radiculopathy, lumbar region (principal); G89.4 Chronic pain syndrome; G62.9 Polyneuropathy, unspecified; Z79.891 Long term (current) use of opiate analgesic

== ENCOUNTER → 2020-01-27 | Outpatient (CLI) | payer OTHER, BC | LOC: HYPER 09:36 | PROVIDERS: ATTEND Emergency Medicine | DX: L03.116 Cellulitis of left lower limb (principal); L03.115 Cellulitis of right lower limb; R21 Rash and other nonspecific skin eruption; C50.412 Malignant neoplasm of upper-outer quadrant of left female breast; D70.1 Agranulocytosis secondary to cancer chemotherapy; R60.9 Edema, unspecified; T65.224D Toxic effect of tobacco cigarettes, undetermined, subsequent encounter; J45.909 Unspecified asthma, uncomplicated; F17.200 Nicotine dependence, unspecified, uncomplicated; F41.9 Anxiety disorder, unspecified ==

== ENCOUNTER → 2020-02-10 | Outpatient (CLI) | payer OTHER, BC ==
[~2020-02-10] MED LIST changes: +ENDOCET 10-3251 EACH PO
== END ==
LOC: HYPER 13:20
PROVIDERS: ATTEND Emergency Medicine
DX: L03.116 Cellulitis of left lower limb (principal); L03.115 Cellulitis of right lower limb; R21 Rash and other nonspecific skin eruption; C50.412 Malignant neoplasm of upper-outer quadrant of left female breast; D70.1 Agranulocytosis secondary to cancer chemotherapy; R60.9 Edema, unspecified; T65.224D Toxic effect of tobacco cigarettes, undetermined, subsequent encounter; J45.909 Unspecified asthma, uncomplicated; M19.90 Unspecified osteoarthritis, unspecified site; F17.200 Nicotine dependence, unspecified, uncomplicated; F41.9 Anxiety disorder, unspecified

== ENCOUNTER → 2020-03-02 | Outpatient (CLI) | payer OTHER, BC ==
[~2020-03-02] MED LIST changes: +CYMBALTA20 MG PO
== END ==
LOC: HYPER 14:31
PROVIDERS: ATTEND Emergency Medicine
DX: L03.116 Cellulitis of left lower limb (principal); L03.115 Cellulitis of right lower limb; R21 Rash and other nonspecific skin eruption; C50.412 Malignant neoplasm of upper-outer quadrant of left female breast; D70.1 Agranulocytosis secondary to cancer chemotherapy; R60.9 Edema, unspecified; T65.224D Toxic effect of tobacco cigarettes, undetermined, subsequent encounter; J45.909 Unspecified asthma, uncomplicated; M19.90 Unspecified osteoarthritis, unspecified site; F17.200 Nicotine dependence, unspecified, uncomplicated; F41.9 Anxiety disorder, unspecified; Z85.89 Personal history of malignant neoplasm of other organs and systems

== ENCOUNTER → 2020-03-03 | Outpatient (CLI) | payer OTHER, BC ==
[~2020-03-03] VITALS: Ht 162.6 cm; Wt 46.0 kg
[2020-03-03 13:28] VITALS: BP 155/97
--- NOTE | 2020-03-03 13:42 | NUR ---
Pain Clinic Assessment: 1. History of Osteoarthritis: Left Lower Extremity Right Lower Extremity History of Rheumatoid Arthritis: DENIES 2. Height: 5 ft. 4 in. 162.6 cm. Weight: 101.4 lb. oz. 45.995 kg. Patient's BMI: 17.4 3. Vital Signs: BP: 155/97 Pulse: 92 Resp: 16 Temp: 02 Sat: 97 ECG Mon: 4. Pain Intensity: 10 5. Fall Risk: Dizziness: N Needs help standing or walking: N Fallen in the last 3 months: N Fall risk comments: 6. Patient on Blood Thinner: None 7. History of Hypertension: N 8. Opioid Therapy greater than 6 weeks: Y Opiate Contract Signed: 12/28/15 9. Risk Assessment Tool Provided: 1-LOW 10. Functional Assessment Tool: 11. Recreational Drug Use: Never Drug Type: Tobacco Use: Former Smoker Tobacco Type: Amount or Packs/day: How Many Years: Alcohol Use: No Frequency: Quant:
--- NOTE | 2020-03-04 12:18 | HPC ---
[facility] [address] [place] [address] PAIN MANAGEMENT CONSULTATION Name: JORDEN GREGORIO Room #: REG SOFÍA Leonie.#: [id number] Admission: 03/03/20 Attend Phys: Kenisha Serrato Discharge: Date of : 42 Report #: [id number] THIS REPORT FOR: cc: Phill Calvillo MD, Neal A. MD Hocker,Kenisha ZEPEDA ~ DATE OF SERVICE: 03/03/2020 CHIEF COMPLAINT: Chronic pain related to cancer and chemotherapy as well as ongoing low back pain. HISTORY OF PRESENT ILLNESS: This is a 79-year-old female who returns to the pain clinic today for a refill of her opioid medications. Today, she is reporting an increased pain at 10/10 in her right lower extremity as well as her low back pain that is chronic in nature. She believes since her chemotherapy, her pain has increased, especially the burning sensation she is experiencing in her left leg. Her pain is worse with standing, sitting. She does have significant edema in her left lower extremity and has recently been diagnosed with cellulitis and has been seeing the integrity specialist, Dr. Tom Jewell. The patient does have lymphedema in her left upper extremity as well and is wearing a lymphedema sleeve and per her report is going to be getting a lymphedema pump soon. The patient is wondering if there are any changes that we may offer her to help with her neuropathy. She denies significant constipation or daytime somnolence as a result of her medications. ALLERGIES: SHELLFISH. CURRENT LIST OF MEDICATIONS: Oxycodone 10/325, melatonin, and Xopenex inhaler. PQRS: 1. She has a history of osteoarthritis in her bilateral extremities and denies any rheumatoid arthritis. 2. Height is 5 feet 4 inches, weight is 101. BMI is 17. 3. Vital signs: Blood pressure 155/97, pulse is 92, respirations 16, oxygen sat is 97%. 4. Pain score is 10/10. 5. Denies dizziness. She does not need any assistance with ambulation and has not fallen in the last 3 months. 6. The patient is not on any blood thinners or medicine for hypertension. 7. Opioid therapy is greater than 6 weeks; therefore, an opioid signed contract is on the chart. Risk assessment is low. Functional assessment is 47/70. 8. Recreational drug use, she denies. She is a former smoker and does not drink alcohol. According to the prescription monitoring system, the patient is filling appropriately in a timely fashion. Her morphine milliequivalent [place] [address] PAIN MANAGEMENT CONSULTATION Name: JORDEN GREGORIO Room #: REG SOFÍA Gibson#: [id number] Admission: 03/03/20 Attend Phys: Kenisha Serrato Discharge: Date of : 42 Report #: [id number] follow her very carefully and closely and she is seen every 2 months for medication refills. PHYSICAL EXAMINATION: GENERAL: This is an alert and orientated 79-year-old female who appears her stated age, placing her current pain score at 10/10. HEENT: Normocephalic, atraumatic. Extraocular eye muscles are intact. She is wearing a mask. MUSCULOSKELETAL: She has diffuse tenderness in her neck, shoulders, and lower back. The pain does radiate down her bilateral legs, though greater on the left than the right with significant burning sensation into the left leg and feet with mild allodynia. She has 2+ edema in her left lower extremity. Recent cellulitis. No open lesions present. Her left arm is swollen, have 1+ edema from lymphedema related to her chemotherapy. IMPRESSION: 1. Chronic intractable back pain with radiculopathy and spondylosis. 2. Chronic related pain from her breast cancer. 3. 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 4. Lymphedema. 5. Management of high risk medications under terms of written opioid agreement. PLAN: 1. We discussed treatment options with the patient today. The patient is complaining of significant increase in neuropathic pain. We discussed various treatment options. She had been on gabapentin in the past, though had significant side effects. We have decided to start her on a very low dose of Cymbalta at 20 mg tablets once a day to see if this may help with some of her peripheral neuropathy. I explained to her that we may increase this to 30 mg, then to 60 if tolerates it. The patient instructed to call in 3 weeks to report how she is doing and we will decide to continue current dose or increase this slightly. 2. We will continue her on her oxycodone 10 mg/325 tablets. The patient is able to take 6 tablets a day and finds thisbeneficial. 3. The patient is seen today in collaboration with Dr. Burns, who will send her medications for 2 months electronically. <ELECTRONICALLY SIGNED> By: Kenisha Serrato 03/04/20 1218 [id number] Kenisha Serrato /nt
== END ==
LOC: PAIN 06:56
PROVIDERS: ATTEND Clinical Nurse Specialist Adult Health
DX: M47.26 Other spondylosis with radiculopathy, lumbar region (principal); G89.29 Other chronic pain; G62.9 Polyneuropathy, unspecified; Z79.891 Long term (current) use of opiate analgesic

== ENCOUNTER → 2020-03-31 | Outpatient (CLI) | payer OTHER, BC ==
[~2020-03-31] VITALS: Ht 162.6 cm; Wt 44.7 kg
[~2020-03-31] MED LIST changes: +NEURONTIN100 MG PO
[2020-03-31 13:00] VITALS: BP 152/85
--- NOTE | 2020-03-31 13:23 | NUR ---
Pain Clinic Assessment: 1. History of Osteoarthritis: Left Lower Extremity Right Lower Extremity History of Rheumatoid Arthritis: DENIES 2. Height: 5 ft. 4 in. 162.6 cm. Weight: 98.6 lb. oz. 44.724 kg. Patient's BMI: 16.9 3. Vital Signs: BP: 152/85 Pulse: 84 Resp: 12 Temp: 02 Sat: 99 ECG Mon: 4. Pain Intensity: 10 5. Fall Risk: Dizziness: N Needs help standing or walking: N Fallen in the last 3 months: N Fall risk comments: 6. Patient on Blood Thinner: None 7. History of Hypertension: N 8. Opioid Therapy greater than 6 weeks: Y Opiate Contract Signed: 12/28/15 9. Risk Assessment Tool Provided: 1-LOW 10. Functional Assessment Tool: 11. Recreational Drug Use: Never Drug Type: Tobacco Use: Former Smoker Tobacco Type: Amount or Packs/day: How Many Years: Alcohol Use: No Frequency: Quant:
== END ==
LOC: PAIN 06:46
PROVIDERS: ATTEND Anesthesiology Pain Medicine
DX: G89.4 Chronic pain syndrome (principal); M47.26 Other spondylosis with radiculopathy, lumbar region; F32.9 Major depressive disorder, single episode, unspecified; Z79.891 Long term (current) use of opiate analgesic

== ENCOUNTER → 2020-05-02 | Outpatient (CLI) | payer OTHER, BC ==
[~2020-05-02] VITALS: Ht 162.6 cm; Wt 45.2 kg
[~2020-05-02] MED LIST changes: +DURAGESIC1 EAC4 TRANSDERM; +HERCEPTIN150 MG IV; +PERJETA420 MG/14 IV
[2020-05-02 11:05] VITALS: BP 120/90
--- NOTE | 2020-05-02 11:19 | NUR ---
Pain Clinic Assessment: 1. History of Osteoarthritis: Left Lower Extremity Right Lower Extremity History of Rheumatoid Arthritis: DENIES 2. Height: 5 ft. 4 in. 162.6 cm. Weight: 99.6 lb. oz. 45.178 kg. Patient's BMI: 17.1 3. Vital Signs: BP: 120/90 Pulse: 86 Resp: 16 Temp: 02 Sat: 100 ECG Mon: 4. Pain Intensity: 10 5. Fall Risk: Dizziness: N Needs help standing or walking: N Fallen in the last 3 months: N Fall risk comments: 6. Patient on Blood Thinner: None 7. History of Hypertension: N 8. Opioid Therapy greater than 6 weeks: Y Opiate Contract Signed: 12/28/15 9. Risk Assessment Tool Provided: 1-LOW 10. Functional Assessment Tool: 11. Recreational Drug Use: Never Drug Type: Tobacco Use: Former Smoker Tobacco Type: Amount or Packs/day: How Many Years: Alcohol Use: No Frequency: Quant:
== END ==
LOC: PAIN 07:08
PROVIDERS: ATTEND Anesthesiology Pain Medicine
DX: G89.4 Chronic pain syndrome (principal); M54.16 Radiculopathy, lumbar region; G62.9 Polyneuropathy, unspecified; R60.0 Localized edema; F41.9 Anxiety disorder, unspecified; Z85.3 Personal history of malignant neoplasm of breast; Z79.899 Other long term (current) drug therapy; Z79.891 Long term (current) use of opiate analgesic

== ENCOUNTER → 2020-07-14 | Outpatient (CLI) | payer OTHER, BC ==
[~2020-07-14] VITALS: Ht 162.6 cm; Wt 44.2 kg
[2020-07-14 13:17] VITALS: BP 143/81
--- NOTE | 2020-07-14 13:30 | NUR ---
Pain Clinic Assessment: 1. History of Osteoarthritis: Left Lower Extremity Right Lower Extremity History of Rheumatoid Arthritis: DENIES 2. Height: 5 ft. 4 in. 162.6 cm. Weight: 97.4 lb. oz. 44.180 kg. Patient's BMI: 16.7 3. Vital Signs: BP: 143/81 Pulse: 86 Resp: 14 Temp: 02 Sat: 100 ECG Mon: 4. Pain Intensity: 110 5. Fall Risk: Dizziness: N Needs help standing or walking: N Fallen in the last 3 months: N Fall risk comments: 6. Patient on Blood Thinner: None 7. History of Hypertension: N 8. Opioid Therapy greater than 6 weeks: Y Opiate Contract Signed: 12/28/15 9. Risk Assessment Tool Provided: 1-LOW 10. Functional Assessment Tool: 11. Recreational Drug Use: Never Drug Type: Tobacco Use: Former Smoker Tobacco Type: Amount or Packs/day: How Many Years: Alcohol Use: No Frequency: Quant:
== END | disposition home or self-care (01) ==
LOC: PAIN 05-30 12:19
PROVIDERS: ATTEND Anesthesiology Pain Medicine
DX: M51.16 Intervertebral disc disorders with radiculopathy, lumbar region (principal); M48.061 Spinal stenosis, lumbar region without neurogenic claudication; M41.86 Other forms of scoliosis, lumbar region; M19.90 Unspecified osteoarthritis, unspecified site; Z98.890 Other specified postprocedural states; Z79.899 Other long term (current) drug therapy; Z79.891 Long term (current) use of opiate analgesic

== ENCOUNTER → 2020-09-19 | Outpatient (CLI) | payer OTHER, BC ==
[~2020-09-19] VITALS: Ht 162.6 cm; Wt 44.0 kg
[~2020-09-19] MED LIST changes: +MEDROLDOSEPACK PO
[2020-09-19 11:05] VITALS: BP 161/81
--- NOTE | 2020-09-19 12:04 | NUR ---
Pain Clinic Assessment: 1. History of Osteoarthritis: Left Lower Extremity Right Lower Extremity History of Rheumatoid Arthritis: DENIES 2. Height: 5 ft. 4 in. 162.6 cm. Weight: 97.0 lb. oz. 43.999 kg. Patient's BMI: 16.6 3. Vital Signs: BP: 161/81 Pulse: 93 Resp: 14 Temp: 02 Sat: 100 ECG Mon: 4. Pain Intensity: 10+ 5. Fall Risk: Dizziness: N Needs help standing or walking: N Fallen in the last 3 months: N Fall risk comments: 6. Patient on Blood Thinner: None 7. History of Hypertension: N 8. Opioid Therapy greater than 6 weeks: Y Opiate Contract Signed: 12/28/15 9. Risk Assessment Tool Provided: 1-LOW 10. Functional Assessment Tool: 11. Recreational Drug Use: Never Drug Type: Tobacco Use: Former Smoker Tobacco Type: Amount or Packs/day: How Many Years: Alcohol Use: No Frequency: Quant:
== END ==
LOC: PAIN 07:07
PROVIDERS: ATTEND Clinical Nurse Specialist Adult Health
DX: G89.4 Chronic pain syndrome (principal); M54.16 Radiculopathy, lumbar region; G62.9 Polyneuropathy, unspecified; M41.86 Other forms of scoliosis, lumbar region; F41.9 Anxiety disorder, unspecified; Z79.891 Long term (current) use of opiate analgesic; Z87.891 Personal history of nicotine dependence; Z79.899 Other long term (current) drug therapy

== ENCOUNTER → 2020-10-10 | Outpatient (CLI) | payer OTHER, BC ==
[~2020-10-10] VITALS: Ht 162.6 cm; Wt 43.7 kg
[2020-10-10 13:18] VITALS: BP 182/104
--- NOTE | 2020-10-10 13:31 | NUR ---
Pain Clinic Assessment: 1. History of Osteoarthritis: Left Lower Extremity Right Lower Extremity History of Rheumatoid Arthritis: DENIES 2. Height: 5 ft. 4 in. 162.6 cm. Weight: 96.4 lb. oz. 43.727 kg. Patient's BMI: 16.5 3. Vital Signs: BP: 182/104 Pulse: 82 Resp: 14 Temp: 02 Sat: 100 ECG Mon: 4. Pain Intensity: 10 5. Fall Risk: Dizziness: Y Needs help standing or walking: N Fallen in the last 3 months: N Fall risk comments: 6. Patient on Blood Thinner: None 7. History of Hypertension: N 8. Opioid Therapy greater than 6 weeks: Y Opiate Contract Signed: 12/28/15 9. Risk Assessment Tool Provided: 1-LOW 10. Functional Assessment Tool: 11. Recreational Drug Use: Never Drug Type: Tobacco Use: Former Smoker Tobacco Type: Amount or Packs/day: How Many Years: Alcohol Use: No Frequency: Quant:
== END | disposition home or self-care (01) ==
LOC: PAIN 07:23
PROVIDERS: ATTEND Anesthesiology Pain Medicine
DX: M54.16 Radiculopathy, lumbar region (principal); G89.29 Other chronic pain; M19.90 Unspecified osteoarthritis, unspecified site; Z98.890 Other specified postprocedural states; Z79.899 Other long term (current) drug therapy; Z88.8 Allergy status to other drugs, medicaments and biological substances; Z85.3 Personal history of malignant neoplasm of breast

== ENCOUNTER → 2020-12-12 | Outpatient (CLI) | payer OTHER, BC ==
[~2020-12-12] VITALS: Ht 162.6 cm; Wt 43.6 kg
[2020-12-12 12:57] VITALS: BP 173/92
--- NOTE | 2020-12-12 13:01 | NUR ---
Pain Clinic Assessment: 1. History of Osteoarthritis: Left Lower Extremity Right Lower Extremity History of Rheumatoid Arthritis: DENIES 2. Height: 5 ft. 4 in. 162.6 cm. Weight: 96.2 lb. oz. 43.636 kg. Patient's BMI: 16.5 3. Vital Signs: BP: 173/92 Pulse: 97 Resp: 18 Temp: 02 Sat: 100 ECG Mon: 4. Pain Intensity: 10 5. Fall Risk: Dizziness: Y Needs help standing or walking: N Fallen in the last 3 months: N Fall risk comments: 6. Patient on Blood Thinner: None 7. History of Hypertension: N 8. Opioid Therapy greater than 6 weeks: Y Opiate Contract Signed: 12/28/15 9. Risk Assessment Tool Provided: 1-LOW 10. Functional Assessment Tool: 11. Recreational Drug Use: Never Drug Type: Tobacco Use: Former Smoker Tobacco Type: Amount or Packs/day: How Many Years: Alcohol Use: No Frequency: Quant:
== END ==
LOC: PAIN 10:50
PROVIDERS: ATTEND Anesthesiology Pain Medicine
DX: G89.4 Chronic pain syndrome (principal); M54.16 Radiculopathy, lumbar region; F32.9 Major depressive disorder, single episode, unspecified; F41.9 Anxiety disorder, unspecified; G62.9 Polyneuropathy, unspecified; Z79.891 Long term (current) use of opiate analgesic; Z79.899 Other long term (current) drug therapy

== ENCOUNTER → 2020-12-28 | Outpatient (CLI) | payer OTHER, BC | LOC: SJCVC 13:53 | PROVIDERS: ATTEND Internal Medicine Cardiovascular Disease | DX: R94.31 Abnormal electrocardiogram [ECG] [EKG] (principal); R00.0 Tachycardia, unspecified; I10 Essential (primary) hypertension; G89.29 Other chronic pain; C34.90 Malignant neoplasm of unspecified part of unspecified bronchus or lung; J43.9 Emphysema, unspecified; Z87.891 Personal history of nicotine dependence; Z79.899 Other long term (current) drug therapy; Z88.1 Allergy status to other antibiotic agents ==

== ENCOUNTER → 2021-01-06 | Outpatient (CLI) | payer OTHER, BC | LOC: SJCVCIMAG 09:56 | PROVIDERS: ATTEND Internal Medicine Cardiovascular Disease | DX: R94.31 Abnormal electrocardiogram [ECG] [EKG] (principal); I11.9 Hypertensive heart disease without heart failure; C34.90 Malignant neoplasm of unspecified part of unspecified bronchus or lung; J44.9 Chronic obstructive pulmonary disease, unspecified; G89.29 Other chronic pain; J45.909 Unspecified asthma, uncomplicated; Z87.891 Personal history of nicotine dependence; Z79.899 Other long term (current) drug therapy; Z88.8 Allergy status to other drugs, medicaments and biological substances ==

== ENCOUNTER → 2021-01-19 | Outpatient (CLI) | payer OTHER, BC ==
[~2021-01-19] VITALS: Ht 162.6 cm; Wt 43.6 kg
[2021-01-19 14:04] VITALS: BP 182/101
--- NOTE | 2021-01-19 14:12 | NUR ---
Pain Clinic Assessment: 1. History of Osteoarthritis: Left Lower Extremity Right Lower Extremity History of Rheumatoid Arthritis: DENIES 2. Height: 5 ft. 4 in. 162.6 cm. Weight: 96.2 lb. oz. 43.636 kg. Patient's BMI: 16.5 3. Vital Signs: BP: 182/101 Pulse: 95 Resp: 16 Temp: 02 Sat: 100 ECG Mon: 4. Pain Intensity: 9-10 W/ACTIVITY 5. Fall Risk: Dizziness: Y Needs help standing or walking: N Fallen in the last 3 months: N Fall risk comments: 6. Patient on Blood Thinner: None 7. History of Hypertension: N 8. Opioid Therapy greater than 6 weeks: Y Opiate Contract Signed: 12/28/15 9. Risk Assessment Tool Provided: 1-LOW 10. Functional Assessment Tool: 11. Recreational Drug Use: Never Drug Type: Tobacco Use: Former Smoker Tobacco Type: Amount or Packs/day: How Many Years: Alcohol Use: No Frequency: Quant:
== END ==
LOC: PAIN 13:01
PROVIDERS: ATTEND Anesthesiology Pain Medicine
DX: G89.29 Other chronic pain (principal); M54.16 Radiculopathy, lumbar region; M17.12 Unilateral primary osteoarthritis, left knee; Z88.8 Allergy status to other drugs, medicaments and biological substances; Z79.899 Other long term (current) drug therapy

== ENCOUNTER → 2021-01-30 | Outpatient (CLI) | payer OTHER, BC ==
[~2021-01-30] VITALS: Ht 162.6 cm; Wt 43.7 kg
[2021-01-30 11:36] VITALS: BP 163/92
--- NOTE | 2021-01-30 11:37 | NUR ---
Pain Clinic Assessment: 1. History of Osteoarthritis: Left Lower Extremity Right Lower Extremity History of Rheumatoid Arthritis: DENIES 2. Height: 5 ft. 4 in. 162.6 cm. Weight: 96.4 lb. oz. 43.727 kg. Patient's BMI: 16.5 3. Vital Signs: BP: 163/92 Pulse: 97 Resp: 16 Temp: 02 Sat: 98 ECG Mon: 4. Pain Intensity: 8 5. Fall Risk: Dizziness: Needs help standing or walking: Fallen in the last 3 months: Fall risk comments: 6. Patient on Blood Thinner: None 7. History of Hypertension: N 8. Opioid Therapy greater than 6 weeks: Y Opiate Contract Signed: 12/28/15 9. Risk Assessment Tool Provided: 1-LOW 10. Functional Assessment Tool: 11. Recreational Drug Use: Never Drug Type: Tobacco Use: Former Smoker Tobacco Type: Amount or Packs/day: How Many Years: Alcohol Use: No Frequency: Quant:
== END | disposition home or self-care (01) ==
LOC: PAIN 07:09
PROVIDERS: ATTEND Anesthesiology Pain Medicine
DX: M25.562 Pain in left knee (principal); M17.12 Unilateral primary osteoarthritis, left knee; M54.16 Radiculopathy, lumbar region; G89.29 Other chronic pain; Z98.890 Other specified postprocedural states; Z79.899 Other long term (current) drug therapy; Z79.891 Long term (current) use of opiate analgesic; Z85.3 Personal history of malignant neoplasm of breast; Z87.891 Personal history of nicotine dependence

== ENCOUNTER → 2021-03-06 | Outpatient (CLI) | payer OTHER, BC ==
[~2021-03-06] VITALS: Ht 162.6 cm; Wt 43.4 kg
[2021-03-06 15:43] VITALS: BP 161/91
--- NOTE | 2021-03-06 16:00 | NUR ---
Pain Clinic Assessment: 1. History of Osteoarthritis: Left Lower Extremity Right Lower Extremity History of Rheumatoid Arthritis: DENIES 2. Height: 5 ft. 4 in. 162.6 cm. Weight: 95.6 lb. oz. 43.364 kg. Patient's BMI: 16.4 3. Vital Signs: BP: 161/91 Pulse: 100 Resp: 14 Temp: 02 Sat: 100 ECG Mon: 4. Pain Intensity: 10 5. Fall Risk: Dizziness: N Needs help standing or walking: N Fallen in the last 3 months: N Fall risk comments: 6. Patient on Blood Thinner: None 7. History of Hypertension: N 8. Opioid Therapy greater than 6 weeks: Y Opiate Contract Signed: 12/28/15 9. Risk Assessment Tool Provided: 1-LOW 10. Functional Assessment Tool: 11. Recreational Drug Use: Never Drug Type: Tobacco Use: Former Smoker Tobacco Type: Amount or Packs/day: How Many Years: Alcohol Use: No Frequency: Quant:
== END | disposition home or self-care (01) ==
LOC: PAIN 10:28
PROVIDERS: ATTEND Anesthesiology Pain Medicine
DX: M25.562 Pain in left knee (principal); M17.12 Unilateral primary osteoarthritis, left knee; G89.29 Other chronic pain; M54.16 Radiculopathy, lumbar region; M19.90 Unspecified osteoarthritis, unspecified site; Z98.890 Other specified postprocedural states; Z79.899 Other long term (current) drug therapy; Z87.891 Personal history of nicotine dependence; Z88.8 Allergy status to other drugs, medicaments and biological substances

== ENCOUNTER → 2021-04-27 | Outpatient (CLI) | payer OTHER, BC ==
[~2021-04-27] VITALS: Ht 162.6 cm; Wt 45.4 kg
[~2021-04-27] MED LIST changes: +OXYCODONE HCL10 MG PO
[2021-04-27 13:33] VITALS: BP 178/108
--- NOTE | 2021-04-27 13:41 | NUR ---
Pain Clinic Assessment: 1. History of Osteoarthritis: Left Lower Extremity Right Lower Extremity History of Rheumatoid Arthritis: DENIES 2. Height: 5 ft. 4 in. 162.6 cm. Weight: 100.0 lb. oz. 45.360 kg. Patient's BMI: 17.2 3. Vital Signs: BP: 178/108 Pulse: 97 Resp: 12 Temp: 02 Sat: 99 ECG Mon: 4. Pain Intensity: 10 5. Fall Risk: Dizziness: N Needs help standing or walking: Y Fallen in the last 3 months: N Fall risk comments: 6. Patient on Blood Thinner: None 7. History of Hypertension: N 8. Opioid Therapy greater than 6 weeks: Y Opiate Contract Signed: 12/28/15 9. Risk Assessment Tool Provided: 1-LOW 10. Functional Assessment Tool: 11. Recreational Drug Use: Never Drug Type: Tobacco Use: Former Smoker Tobacco Type: Amount or Packs/day: How Many Years: Alcohol Use: No Frequency: Quant:
== END | disposition home or self-care (01) ==
LOC: PAIN 13:18
PROVIDERS: ATTEND Anesthesiology Pain Medicine
DX: M25.552 Pain in left hip (principal); M16.12 Unilateral primary osteoarthritis, left hip; G89.29 Other chronic pain; M19.90 Unspecified osteoarthritis, unspecified site; Z98.890 Other specified postprocedural states; Z79.899 Other long term (current) drug therapy; Z87.891 Personal history of nicotine dependence; Z88.8 Allergy status to other drugs, medicaments and biological substances